=== PATIENT | female | born 1940 | race Caucasian/White ===

== ENCOUNTER 2020-04-26 08:46 | Outpatient (CLI) | payer MEDICARE, SELFPAY ==
--- NOTE | ~2020-04-26 | MM_ITS ---
EXAMINATION: MM screening alexander BI w carlos enrique HISTORY: Screening TECHNIQUE: Craniocaudal and mediolateral oblique 3-D tomosynthesis images were obtained and synthetic 2-D images were generated. CAD analysis was submitted and interpreted. COMPARISON: Comparison to multiple prior studies sequentially, with oldest reviewed study dated 01/2015. BREAST PARENCHYMAL COMPOSITION: There are scattered areas of fibroglandular density. FINDINGS: There is no evidence of suspicious mass, calcification, or architectural distortion to sugg est malignancy in either breast. There has been no suspicious interval change. IMPRESSION: 1. No mammographic evidence of malignancy. 2. Recommend routine screening mammography in one year. BI-RADS Category 1: Negative Reviewed, dictated and finalized at location A.
== END 2020-04-26 08:47 | disposition home or self-care (01) ==
LOC: ANHIMG 08:54
PROVIDERS: PCP Family Medicine; Visit Provider Family Medicine
DX: Z12.31 Encounter for screening mammogram for malignant neoplasm of breast (principal)
CPT/HCPCS: 77063; 77067

== ENCOUNTER → 2021-02-09 01:39 | Outpatient (CLI) | payer MEDICARE, SELFPAY ==
[2021-02-09 19:55] LABS: SARS-CoV-2 RNA PCR Negative
== END ==
PROVIDERS: PCP Family Medicine; Visit Provider Internal Medicine Gastroenterology
DX: Z01.812 Encounter for preprocedural laboratory examination (principal); Z20.822 Contact with and (suspected) exposure to COVID-19
CPT/HCPCS: C9803; U0003; U0005

== ENCOUNTER 2021-02-13 01:57 | Day surgery (SDC) | payer MEDICARE, SELFPAY ==
[2021-02-01 14:20] VITALS: BMI 24.2
[2021-02-13 07:00] VITALS: BP 139/74; PULSE 77; RESP 16; TEMP 36.1; O2SAT 100; BMI 25.2
[2021-02-13] MEDS: LACTATED RINGERS 1,000 ML 150 ML IV CONT (07:15)
--- NOTE | 2021-02-13 07:29 | P.PNAN_ITS ---
Anes - Initial Pre Proc Eval Procedure: Operation Date: 02/13/21 08:15 Proposed Procedures p Screening Colonoscopy - Kaz Mancia MD Date/Time: 02/13/21 07:29 Surgeon: aKz Mancia MD Pre Op Diagnosis: neoplasm screening, hx colon polyps Patient Data Age: 80 Gender: F Height: 5 ft 5 in Weight: 68.7 kg Last Vital Signs Temp 96.9 F L 02/13/21 07:00 Pulse 77 02/13/21 07:00 Resp 16 02/13/21 07:00 BP 139/74 02/13/21 07:00 Pulse Ox 100 02/13/21 07:00 Allergies Allergy/AdvReac Type Severity Reaction Status Date / Time No Known Allergies Allergy Verified 02/13/21 06:59 Home Medications Medication Instructions Recorded Confirmed Type simvastatin 20 mg tablet 20 mg PO DAILY #90 tablet 04/13/20 02/13/21 Rx balsalazide 750 mg capsule 2,250 mg PO TID #810 cap 10/29/20 02/13/21 Rx aspirin 81 mg PO DAILY 02/01/21 02/13/21 History calcium carbonate-vitamin D3 1 tablet PO DAILY 02/01/21 02/13/21 History [Os-Oscar 500 + D3] ferrous sulfate 325 mg PO DAILY 02/01/21 02/13/21 History hydrochlorothiazide 12.5 mg PO DAILY 02/01/21 02/13/21 History levothyroxine 50 mcg PO DAILY 02/01/21 02/13/21 History lisinopril 40 mg PO DAILY 02/01/21 02/13/21 History Patient hx anesthesia problems: none Family hx anesthesia problems: none [facility] Past Medical History Medical History (Updated 02/13/21 @ 07:29 by Tony Waller MD) Chronic kidney disease, stage 3 (moderate) Essential (primary) hypertension Mixed hyperlipidemia Family History Family History Mother Family history of thyroid disease Hypertension Cerebrovascular accident Sibling Hypertension Family history of elevated blood lipids Grandparent Family history of cardiovascular disease Father Family history of pulmonary embolism Social History Social History Smoking status: Never smoker Alcohol intake: current Alcohol use details: RARELY Living arrangements: alone Spiritual care concerns: No Anes - Eval Final PreProcedure Day of Procedure 02/13/21 07:29 Patient weight: normal Heart: regular rate and rhythm Lungs: clear to auscultation Airway: Mallampati scale class II Neurological: alert and oriented Last oral intake: >/= 8 hours ASA classification: III Emergent: no Anesthetic plan: proceed Anesthesia type and monitoring: general GIVS and standard monitoring Informed Consent: The patient's anesthetic plan and its attendant risks and benefits were discussed with the patient/family/POA. Questions were solicited and answers provided to the satisfaction of the patient/family/POA.
--- NOTE | 2021-02-13 08:05 | WPDGICN ---
Assessment and Plan Assessment and plan (1) Ulcerative (chronic) pancolitis without complications: Code(s): K51.00 - Ulcerative (chronic) pancolitis without complications Status: Acute Assessment and Plan: Patient has a longstanding history of ulcerative colitis. Currently in remission. Plan is to continue balsalazide for the immediate future further recommendations may be given after endoscopy. Surveillance colonoscopy is recommended at 3-5 year intervals in the future. As long as her health remains stable. GI Consult Note Consult date/time: 02/13/21 08:05 HPI: Lurdes Johnson is a 80 year old female Presents for surveillance colonoscopy. Patient has a history of ulcerative colitis. It has been in remission for several years. She has had surveillance colonoscopies in 2011 and 2014 with endoscopic findings of remission. Patient has been maintained on balsalazide 3 tablets p.o. t.i.d.. Patient denies any blood in her stools. She states that her weight appetite bowel movements are normal. She denies any abdominal pain. Family history is noncontributory. Patient presents today for surveillance examination. Review of Systems Review of Systems: All systems reviewed & are unremarkable except as noted in HPI and below PMFSH Past Medical History Medical History (Updated 02/13/21 @ 07:29 by Tony Waller MD) Chronic kidney disease, stage 3 (moderate) Essential (primary) hypertension Mixed hyperlipidemia Family History Family History Mother Family history of thyroid disease Hypertension Cerebrovascular accident Sibling Hypertension Family history of elevated blood lipids Grandparent Family history of cardiovascular disease Father Family history of pulmonary embolism Social History Social History Smoking status: Never smoker Alcohol intake: current Alcohol use details: RARELY Living arrangements: alone Spiritual care concerns: No Meds Home Medications and Allergies Home Medications Medication Instructions Recorded Confirmed Type simvastatin 20 mg tablet 20 mg PO DAILY #90 tablet 04/13/20 02/13/21 Rx balsalazide 750 mg capsule 2,250 mg PO TID #810 cap 10/29/20 02/13/21 Rx aspirin 81 mg PO DAILY 02/01/21 02/13/21 History calcium carbonate-vitamin D3 1 tablet PO DAILY 02/01/21 02/13/21 History [Os-Oscar 500 + D3] ferrous sulfate 325 mg PO DAILY 02/01/21 02/13/21 History hydrochlorothiazide 12.5 mg PO DAILY 02/01/21 02/13/21 History levothyroxine 50 mcg PO DAILY 02/01/21 02/13/21 History lisinopril 40 mg PO DAILY 02/01/21 02/13/21 History Allergies Allergy/AdvReac Type Severity Reaction Status Date / Time No Known Allergies Allergy Verified 02/13/21 06:59 Vital Signs Vital Signs - 24 hr 02/13/21 07:00 Temperature 96.9 F L Pulse Rate 77 Respiratory Rate 16 Blood Pressure 139/74 Pulse Oximetry 100 Exam Narrative: Exam Narrative: Physical exam reveals patient be alert. Vital signs stable. HEENT exam is unremarkable. Patient is anicteric. Lungs are clear to auscultation and percussion. Heart is without murmur or extra sounds. Abdominal exam bowel sounds are present soft nontender with no organomegaly. Digital external rectal exam is normal.
[2021-02-13 08:44] VITALS: BP 92/49; PULSE 73; RESP 24; O2SAT 100
[2021-02-13 08:54] VITALS: BP 121/59; PULSE 66; RESP 17; O2SAT 100
[2021-02-13 09:04] VITALS: BP 144/60; PULSE 71; RESP 18; O2SAT 100
== END 2021-02-13 09:15 | disposition home or self-care (01) ==
PROVIDERS: PCP Family Medicine; Visit Provider Internal Medicine Gastroenterology
PROC: 0DJD8ZZ Inspection of Lower Intestinal Tract, Via Natural or Artificial Opening Endoscopic (ICD-10-PCS; CPT 45378; principal; 2021-02-13 08:15)
DX: K51.00 Ulcerative (chronic) pancolitis without complications (principal); K57.30 Diverticulosis of large intestine without perforation or abscess without bleeding; K64.8 Other hemorrhoids; I12.9 Hypertensive chronic kidney disease with stage 1 through stage 4 chronic kidney disease, or unspecified chronic kidney disease; N18.30 Chronic kidney disease, stage 3 unspecified; E78.5 Hyperlipidemia, unspecified; Z94.0 Kidney transplant status
CPT/HCPCS: 45380; 88305; C9803; J2704; J7120; U0003; U0005

== ENCOUNTER 2021-04-29 07:29 | Outpatient (CLI) | payer MEDICARE, SELFPAY ==
--- NOTE | ~2021-04-29 | MM_ITS ---
EXAMINATION: MM screening alexander BI w carlos enrique HISTORY: Screening TECHNIQUE: Craniocaudal and mediolateral oblique 3-D tomosynthesis images were obtained and synthetic 2-D images were generated. CAD analysis was submitted and interpreted. COMPARISON: Comparison to multiple prior studies sequentially, with oldest reviewed study dated 05/05. BREAST PARENCHYMAL COMPOSITION: There are scattered areas of fibroglandular density. FINDINGS: There is no evidence of suspicious mass, calcification, or architectural distortion to sugg est malignancy in either breast. There has been no suspicious interval change. IMPRESSION: 1. No mammographic evidence of malignancy. 2. Recommend routine screening mammography in one year. BI-RADS Category 1: Negative Reviewed, dictated and finalized at location A.
== END 2021-04-29 07:30 | disposition home or self-care (01) ==
LOC: ANHIMG 07:31
PROVIDERS: PCP Family Medicine; Visit Provider Family Medicine
DX: Z12.31 Encounter for screening mammogram for malignant neoplasm of breast (principal)
CPT/HCPCS: 77063; 77067

== ENCOUNTER 2022-06-17 08:30 | Outpatient (CLI) | payer MEDICARE, SELFPAY ==
--- NOTE | ~2022-06-17 | MM_ITS ---
EXAMINATION: MM screening alexander BI w carlos enrique HISTORY: Screening mammogram TECHNIQUE: Craniocaudal and mediolateral oblique 3-D tomosynthesis images were obtained and synthetic 2-D images were generated. CAD analysis was submitted and interpreted. COMPARISON: 04/29/2021, 04/26/2020, 04/15/2019 bilateral screening mammogram examinations BREAST PARENCHYMAL COMPOSITION: There are scattered areas of fibroglandular density. FINDINGS: There is no evidence of suspicious mass, calcification, or architectural distortion to sugg est malignancy in either breast. There has been no suspicious interval change. IMPRESSION: 1. No mammographic evidence of malignancy. 2. Recommend routine screening mammography in one year. BI-RADS Category 1: Negative Reviewed, dictated and finalized at location A.
== END 2022-06-17 08:31 | disposition home or self-care (01) ==
PROVIDERS: PCP Physician Assistant; Visit Provider Physician Assistant
DX: Z12.31 Encounter for screening mammogram for malignant neoplasm of breast (principal)
CPT/HCPCS: 77063; 77067

== ENCOUNTER 2022-08-13 12:02 | Emergency (ER) | payer MEDICARE, SELFPAY ==
[2022-08-13] VITALS (16 sets, daily range): BP systolic 123–165; BP diastolic 54–125; PULSE 82–108; RESP 18–27; O2SAT 96–100
--- NOTE | ~2022-08-13 | XR_ITS ---
XR chest 2V 08/13/2022 12:50 Indication: Syncope. Hypertension. Colitis. Procedure: 2 view chest Comparison: 10/26/2015 Findings: Heart size normal. Chronic apical pleural thickening/scarring. No focal air space disease, pulmonary edema, pleural effusion or suspected pneumothorax. Impression: 1: No acute cardiopulmonary disease. Reviewed, dictated and finalized at location B. EGE ADMISSIONS COUNSELOR Impression: 1: No acute cardiopulmonary disease.
--- NOTE | ~2022-08-13 | XR_ITS ---
XR cervical spine 4-5V 08/13/2022 12:51 Indication: Neck pain. Syncope. Procedure: 5 views of the cervical spine Comparison: No prior studies for comparison. Findings: Straightening of cervical lordosis. There is degenerative anterolisthesis at C3-4 and C4-5. There is advanced degenerative disc disease at C5-6 and C6-7. No prevertebral soft tissue swelling. Odontoid process is normal. There is moderate multilevel facet hypertrophy. No acute fracture or trau matic malalignment is identified. Impression: 1: Moderate-severe cervical spondylosis. Reviewed, dictated and finalized at location B. RATORY PHLEBOTOMIST Impression: 1: Moderate-severe cervical spondylosis.
--- NOTE | 2022-08-13 12:28 | ECG_ITS ---
Measurements Intervals [place] Rate: 82 P: 19 WI: 167 QRS: 6 QRSD: 86 T: 11 QT: 376 QTc: 441 Interpretive Statements SINUS RHYTHM BORDERLINE T WAVE ABNORMALITY- ANTERIOR LEADS BASELINE ARTIFACT- I, II, III, AVR, AVL, AVF BORDERLINE ECG NO PREVIOUS ECG AVAILABLE FOR COMPARISON Electronically Signed On 08-13-2022 15:26:53 [employer] by Douglas Condon D.O.
--- NOTE | 2022-08-13 12:41 | PC.NURSE ---
Pt in scan
[2022-08-13] MEDS: diazePAM INJ (*CRX) 10 MG/2 ML SYRINGE 2.5 MG IV PUSH (12:59)
[2022-08-13] MEDS: SODIUM CHLORIDE 0.9% IV 1,000 ML 999 ML IV CONT (12:59)
[2022-08-13] MEDS: KETOROLAC 15 MG/ML VIAL (*BKC) IV PUSH (13:00)
[2022-08-13 13:19] LABS: Basophils Percent Auto 0.5 % (0.2-1.2); Eosinophils Percent Auto 0.2 % (0-4.4); Hematocrit 26.9 % (37.0-47.0); Immature Granulocyte Absolute 0.07 K/mm3 (0.00-0.031); Immature Granulocyte Percent A 1.2 % (0-0.5); Immature Platelet Fraction Pct 6.3 % (0.9-11.2); Lymphocytes Absolute Auto 0.45 K/mm3 (0.9-3.2); Lymphocytes Percent Auto 7.5 % (18.3-44.2); Mean Corpuscular HGB Conc 33.5 g/dl (32-36); Mean Corpuscular Hemoglobin 31.9 pg (26-34); Mean Corpuscular Volume 95.4 fl (80-100); Mean Platelet Volume 10.9 fl (7.4-10.4); Monocytes Absolute Auto 0.6 K/mm3 (0.1-0.6); Monocytes Percent Auto 9.5 % (2.6-8.5); Neutrophils Absolute Auto 4.9 K/mm3 (1.3-6.7); Neutrophils Percent Auto 81.1 % (45.5-73.1); Platelet Count Result 146 k/mm3 (150-375); Red Blood Count 2.82 M/mm3 (4.2-5.4); Red Cell Distribution Width 15.1 % (11.5-14.5)
[2022-08-13 13:26] LABS: INR 1.2; Prothrombin Time 14.4 Seconds (11.1-14.7)
[2022-08-13 13:27] LABS: Alanine Aminotransferase 14 U/L (6-35); Albumin Level 4.6 g/dL (3.5-5.1); Alkaline Phosphatase 87 U/L (38-126); Anion Gap 12 mmol/L (8-16); Aspartate Amino Transferase 18 U/L (14-36); Bilirubin,Total 0.5 mg/dL (0.2-1.3); Blood Urea Nitrogen 19 mg/dL (7-17); Calcium 8.9 mg/dL (8.4-10.2); Carbon Dioxide 24 mmol/L (22-30); Chloride 98 mmol/L (98-107); Estimated CRCL calculation 38 ml/min; Estimated Glomerular Filt Rate 60; Glucose 116 mg/dL (65-110); Partial Thromboplastin Time 32.3 SECONDS (22.3-36.8); Sodium 134 mmol/L (137-145)
[2022-08-13 13:37] LABS: Troponin I < 0.012 ng/mL (0.000-0.034)
[2022-08-13 13:52] LABS: Influenza A QL RT-PCR Negative (Negative); Influenza B QL RT-PCR Negative (Negative); SARS-CoV-2 RNA PCR Negative
[2022-08-13 14:25] LABS: Appearance Urine Clear (Clear); Bilirubin Urine Negative (Negative); Blood Urine Negative (Negative); Color Urine Yellow (Yellow); Glucose Urine UA Negative (Negative); Ketones Urine Trace mg/dL (Negative); Leukocyte Esterase Ur 1+ LEU/UL (Negative); Nitrate Urine Negative (Negative); Protein Urine 1+ mg/dL (Negative); Urobilinogen Urine 0.2 mg/dL (<2.0)
[2022-08-13 14:34] LABS: Add Urine Microscopic? YES; Mucus Urine Rare /lpf; Squamous Epithelial Cell Urine Rare /hpf (Few); WBC Urine 21-30 /hpf
--- NOTE | 2022-08-13 15:25 | ED.NECK ---
HPI - Neck Pain/Injury General Chief Complaint: Neck Pain/Injury Stated Complaint: shooting neck pain to head for 6 days Time Seen by Provider: 08/13/22 12:20 History of Present Illness HPI Narrative: Patient is an 81-year-old female who presents ER with neck pain worsening over the last few days. She went to Chiropractor yesterday and had stim treatments as well as some massage performed. She has been taking [id number] pain medication without improvement. No numbness or tingling. Denies trauma. Woke up with the tightness. No fevers chills or sweats. No meningismus. Has difficulty turning to the left mainly. Denies trauma. Related Data Home Medications Medication Instructions Recorded Confirmed aspirin 81 mg tablet 81 mg PO DAILY 02/01/21 08/13/22 calcium carbonate 500 mg-vitamin 1 tablet PO DAILY 02/01/21 08/13/22 D3 15 mcg (600 unit) tablet (Os-Oscar 500 + D3) ferrous sulfate 325 mg (65 mg 325 mg PO DAILY 02/01/21 08/13/22 iron) tablet Allergies Allergy/AdvReac Type Severity Reaction Status Date / Time No Known Allergies Allergy Verified 08/13/22 11:15 Review of Systems Review of Systems: All systems reviewed & are unremarkable except as noted in HPI and below Constitutional: Constitutional: Denies chills, Reports fatigue and Denies fever(s) ENT: Denies nasal congestion and Denies sore throat Cardiovascular: Cardiovascular: Denies chest pain, Denies rapid heart rate and Denies radiating jaw, neck or arm pain Respiratory: Respiratory: Denies cough and Denies dyspnea Gastrointestinal: Gastrointestinal: Denies abdominal pain, Denies diarrhea and Denies vomiting Musculoskeletal: Musculoskeletal: Reports myalgias and Reports muscle cramps Comments: Neck pain Neurologic: Denies headache(s), Denies focal weakness and Denies numbness PMFSH Past Medical History Medical History Chronic kidney disease, stage 3 (moderate) Essential (primary) hypertension Mixed hyperlipidemia Family History Family History Mother Family history of thyroid disease Hypertension Cerebrovascular accident Sibling Hypertension Family history of elevated blood lipids Grandparent Family history of cardiovascular disease Father Family history of pulmonary embolism Social History Social History Smoking status: Never smoker Alcohol intake: current Alcohol use details: RARELY Substance use: never Substance use type: does not use Lack of Transportation: No Lack of Food: Never True Current Housing: I Have Housing Concerned About Future Housing: No Difficulty Paying Gas/Electric Bills: No Difficulty Paying for Meds: No Currently Unemployed: No Education: High School Diploma/GED Difficulty w/ Childcare or Family Care: No Gender identity (if verbalized by the patient): Female Spiritual care concerns: No Agree to blood products: Yes Exam Narrative: GENERAL: Well-appearing, well-nourished, and in no acute distress. HEAD: Normocephalic, atraumatic. EYES: PERRL and EOMI. ENT: Mucous membranes moist. NECK: Supple. Paraspinal muscle tenderness and spasm in the cervical spine left side. CHEST: Clear to auscultation. No respiratory distress. HEART: Regular rate and rhythm. Normal peripheral pulses. EXTREMITIES: Normal range of motion. No edema. SKIN: Warm, dry, no rash. NEURO: No focal deficits. Alert and oriented x3. PSYCH: Normal mood and affect. Course Course Emergency Course: Patient resting comfortably. Feels much better after Valium and Toradol. Discharge home. Vital Signs Vital signs: Vital Signs Pulse Rate 85 08/13/22 12:03 Respiratory Rate 20 08/13/22 12:03 Blood Pressure 132/73 08/13/22 12:03 Pulse Oximetry 100 08/13/22 12:03 Oxygen Delivery Room Air 08/13/22 12
== END 2022-08-13 15:41 | disposition home or self-care (01) ==
PROVIDERS: Emergency Provider Emergency Medicine; PCP Emergency Medicine
DX: M62.838 Other muscle spasm (principal); Z20.822 Contact with and (suspected) exposure to COVID-19; I12.9 Hypertensive chronic kidney disease with stage 1 through stage 4 chronic kidney disease, or unspecified chronic kidney disease; N18.30 Chronic kidney disease, stage 3 unspecified; E78.2 Mixed hyperlipidemia; Z79.82 Long term (current) use of aspirin; M47.812 Spondylosis without myelopathy or radiculopathy, cervical region; R94.31 Abnormal electrocardiogram [ECG] [EKG]; R82.998 Other abnormal findings in urine
CPT/HCPCS: 36415; 71046; 72050; 80053; 81001; 84484; 85025; 85055; 85610; 85730; 87086; 87636; 93005; 96361; 96374; 96375; 99284; J1885; J3360; J7030

== ENCOUNTER 2022-09-23 10:43 | Outpatient (CLI) | payer MEDICARE, SELFPAY ==
[2022-09-23 18:41] LABS: Basophils Percent Auto 1.1 % (0.2-1.2); Eosinophils Percent Auto 0.4 % (0-4.4); Immature Granulocyte Absolute 0.15 K/mm3 (0.00-0.031); Immature Granulocyte Percent A 5.7 % (0-0.5); Immature Platelet Fraction Pct 9.3 % (0.9-11.2); Lymphocytes Absolute Auto 0.33 K/mm3 (0.9-3.2); Lymphocytes Percent Auto 12.6 % (18.3-44.2); Mean Corpuscular HGB Conc 32.1 g/dl (32-36); Mean Corpuscular Hemoglobin 31.8 pg (26-34); Mean Platelet Volume 10.3 fl (7.4-10.4); Monocytes Absolute Auto 0.1 K/mm3 (0.1-0.6); Monocytes Percent Auto 4.2 % (2.6-8.5); Platelet Count Result 77 k/mm3 (150-375); Red Blood Count 1.95 M/mm3 (4.2-5.4); Red Cell Distribution Width 18.4 % (11.5-14.5); White Blood Count 2.6 K/mm3 (4.5-10.0)
[2022-09-23 20:43] LABS: Hematocrit 19.3 % (37.0-47.0); Hemoglobin 6.2 g/dL (12.0-15.0)
[2022-09-23 20:45] LABS: Anisocytosis 2+ (NORMAL); Hypochromasia 1+ (NORMAL); Platelet Estimate Decreased (Adequate)
[2022-09-23 20:46] LABS: Schistocytes None Seen (NORMAL)
[2022-09-23 21:35] LABS: Free T4 Free Thyroxine 1.84 ng/mL (0.78-2.19)
[2022-09-23 23:04] LABS: Folic Acid > 20.0 ng/mL (2.76->20)
== END 2022-09-23 10:44 | disposition home or self-care (01) ==
LOC: ANHGOSHLAB 10:45
PROVIDERS: PCP Emergency Medicine; Visit Provider Emergency Medicine
DX: R53.83 Other fatigue (principal); D63.8 Anemia in other chronic diseases classified elsewhere
CPT/HCPCS: 36415; 82607; 82746; 84439; 84443; 85025; 85055

== ENCOUNTER 2022-09-23 21:12 | Emergency (ER) | payer MEDICARE, SELFPAY ==
[2022-09-23 21:16] VITALS: BP 136/56; PULSE 105; RESP 20; TEMP 37.2; O2SAT 98
[2022-09-23 21:55] LABS: Immature Platelet Fraction Pct 8.2 % (0.9-11.2); Mean Corpuscular HGB Conc 32.9 g/dl (32-36); Mean Corpuscular Hemoglobin 32.8 pg (26-34); Mean Corpuscular Volume 99.4 fl (80-100); Mean Platelet Volume 11.2 fl (7.4-10.4); Platelet Count Result 81 k/mm3 (150-375); Red Blood Count 1.74 M/mm3 (4.2-5.4); Red Cell Distribution Width 18.6 % (11.5-14.5); White Blood Count 2.1 K/mm3 (4.5-10.0)
[2022-09-23 22:09] LABS: Alanine Aminotransferase 16 U/L (6-35); Albumin Level 3.5 g/dL (3.5-5.1); Alkaline Phosphatase 66 U/L (38-126); Anion Gap 6 mmol/L (8-16); Aspartate Amino Transferase 20 U/L (14-36); Bilirubin,Total 0.5 mg/dL (0.2-1.3); Blood Urea Nitrogen 21 mg/dL (7-17); Calcium 8.2 mg/dL (8.4-10.2); Carbon Dioxide 26 mmol/L (22-30); Chloride 97 mmol/L (98-107); Estimated CRCL calculation 33 ml/min; Estimated Glomerular Filt Rate 48; Glucose 112 mg/dL (65-110); Potassium 3.7 mmol/L (3.4-5.0); Sodium 129 mmol/L (137-145)
[2022-09-23 22:30] LABS: Hematocrit 17.3 % (37.0-47.0); Hemoglobin 5.7 g/dL (12.0-15.0)
[2022-09-23 22:31] LABS: Band Neutrophils Percent 2 % (0-6); Eosinophils Absolute Manual 0.02 K/mm3 (0.02-0.5); Eosinophils Percent Manual 1 % (0-4); Lymphocytes Absolute Manual 0.73 K/mm3 (1.1-4.5); Lymphocytes Percent Manual 35 % (18-44); Monocytes Absolute Manual 0.06 K/mm3 (0.1-0.90); Monocytes Percent Manual 3 % (3-9); Neutrophils Absolute Manual 1.28 K/mm3 (1.7-7.2); Neutrophils Percent Manual 59 % (46-73); Total Cells Counted 100
[2022-09-23 22:32] LABS: Anisocytosis 2+ (NORMAL); Hypochromasia 3+ (NORMAL); Large Platelets Present; Macrocytosis 1+ (NORMAL); Microcytosis 2+ (NORMAL); Platelet Estimate Adequate (Adequate); Poikilocytosis 2+ (NORMAL)
[2022-09-23 22:33] LABS: Ovalocytes 1+ (NORMAL); Schistocytes 1+ (NORMAL)
[2022-09-23 22:35] LABS: Atypical Lymphocytes Present; Hypersegmented Neutrophils Present
[2022-09-23 22:36] LABS: Burr Cells 1+ (NORMAL)
[2022-09-23 23:08] VITALS: BP 132/55; PULSE 91; RESP 22; O2SAT 96
[2022-09-23 23:13] VITALS: O2SAT 96
[2022-09-23 23:32] LABS: Influenza A QL RT-PCR Negative (Negative); Influenza B QL RT-PCR Negative (Negative); RSV RNA, RT-PCR Negative (Negative); SARS-CoV-2 RNA PCR Negative
[2022-09-24] VITALS (8 sets, daily range): BP systolic 128–146; BP diastolic 55–64; PULSE 84–89; RESP 17–28; TEMP 37.3–37.4; O2SAT 92–99
--- NOTE | 2022-09-24 00:17 | ED.RECABL ---
HPI - Recheck/Abnormal Lab/Rx General Chief Complaint: Recheck/Abnormal Lab/Rx Stated Complaint: low hemoglobin Time Seen by Provider: 09/23/22 22:25 History of Present Illness HPI narrative: 81-year-old female presenting from primary care doctor for low hemoglobin, she has been having more fatigue over the last few months, was recently started on iron pills, had studies with her GI doctor to make sure she was not losing blood through her stool. Denies any source of bleeding. Related Data Home Medications Medication Instructions Recorded Confirmed aspirin 81 mg tablet 81 mg PO DAILY 02/01/21 08/13/22 calcium carbonate 500 mg-vitamin 1 tablet PO DAILY 02/01/21 08/13/22 D3 15 mcg (600 unit) tablet (Os-Oscar 500 + D3) ferrous sulfate 325 mg (65 mg 325 mg PO DAILY 02/01/21 08/13/22 iron) tablet pantoprazole 40 mg tablet,delayed 40 mg PO 09/23/22 release Allergies Allergy/AdvReac Type Severity Reaction Status Date / Time No Known Allergies Allergy Verified 09/23/22 23:14 Review of Systems Review of Systems: CONST: Fatigue HEENT: No sore throat C/V: No chest pain RESP: Increased dyspnea with exertion GI: No GI bleed] : No dysuria. M/S: No joint pain. SKIN: Pale NEURO: [No headache or focal numbness or weakness] PSYCH: [No depression] [facility] Past Medical History Medical History Chronic kidney disease, stage 3 (moderate) Essential (primary) hypertension Mixed hyperlipidemia Family History Family History Mother Family history of thyroid disease Hypertension Cerebrovascular accident Sibling Hypertension Family history of elevated blood lipids Grandparent Family history of cardiovascular disease Father Family history of pulmonary embolism Social History Social History Smoking status: Never smoker Alcohol intake: current Alcohol use details: RARELY Substance use: never Substance use type: does not use Lack of Transportation: No Lack of Food: Never True Current Housing: I Have Housing Concerned About Future Housing: No Difficulty Paying Gas/Electric Bills: No Difficulty Paying for Meds: No Currently Unemployed: No Education: High School Diploma/GED Difficulty w/ Childcare or Family Care: No Gender identity (if verbalized by the patient): Female Spiritual care concerns: No Agree to blood products: Yes Exam Narrative: EXAMINATION OF ORGAN SYSTEMS/BODY AREAS: Constitutional: Vital signs per nursing GENERAL: Appears tired but in no acute distress HEAD: Normal with no signs of head trauma. EYES: EOMI, pale conjunctiva ENT: Hearing grossly intact LUNGS: Nonlabored breathing. HEART: Tachycardic ABD: No tenderness RECTAL: Grossly dark stool, hemoccult NEGATIVE EXT: Normal range of motion SKIN: Pale NEURO: [Alert and oriented x 3. No gross focal sensory or strength deficits.] PSYCH: Normal affect Course Vital Signs Vital signs: Vital Signs Temperature 98.9 F 09/23/22 21:16 Pulse Rate 105 H 09/23/22 21:16 Respiratory Rate 20 09/23/22 21:16 Blood Pressure 136/56 L 09/23/22 21:16 Pulse Oximetry 98 09/23/22 21:16 Oxygen Delivery Room Air 09/23/22 21:16 Temperature 99.1 F 09/24/22 00:57 Pulse Rate 88 09/24/22 00:57 Respiratory Rate 17 09/24/22 00:57 Blood Pressure 131/55 L 09/24/22 00:57 Pulse Oximetry 99 09/24/22 00:57 Oxygen Delivery Room Air 09/23/22 23:13 MDM - Recheck/Abnormal Lab/Rx MDM Narrative Medical decision making narrative: 81-year-old female presenting here for anemia requiring blood transfusion, denying any source of blood loss. Vital signs stable here other than some tachycardia, she appears tired and pale on exam. My differential includes possible malignancy versus GI bleed versus malnutrition or anemia of chronic disease.
[2022-09-24] MEDS: SODIUM CHLORIDE 0.9% IV 250 ML 30 ML IV CONT (00:24)
[2022-09-24] MEDS: TUBING, BLOOD SET 1 EACH XX (00:45)
[2022-09-24] MEDS: TUBING, BLOOD PLUM PUMP TUBING 1 EACH XX (02:53)
== END 2022-09-24 05:14 | disposition home or self-care (01) ==
PROVIDERS: Emergency Provider Emergency Medicine; PCP Emergency Medicine
DX: D64.9 Anemia, unspecified (principal); D61.818 Other pancytopenia; Z20.822 Contact with and (suspected) exposure to COVID-19; I12.9 Hypertensive chronic kidney disease with stage 1 through stage 4 chronic kidney disease, or unspecified chronic kidney disease; N18.30 Chronic kidney disease, stage 3 unspecified; E78.2 Mixed hyperlipidemia; Z79.82 Long term (current) use of aspirin
CPT/HCPCS: 36415; 36430; 80053; 82607; 82746; 84439; 84443; 85025; 85055; 86850; 86900; 86901; 86923; 87637; 96360; 96361; 99285; J7050; P9016

== ENCOUNTER 2022-10-10 02:07 | Day surgery (SDC) | payer MEDICARE, SELFPAY ==
[2022-10-09 14:52] VITALS: BMI 22.7
[2022-10-10 07:45] VITALS: BP 125/64; PULSE 85; RESP 12; TEMP 36.6; O2SAT 100
[2022-10-10 07:55] LABS: Basophils Percent Auto 0.4 % (0.2-1.2); Eosinophils Percent Auto 0.8 % (0-4.4); Hematocrit 30.1 % (37.0-47.0); Hemoglobin 9.7 g/dL (12.0-15.0); Immature Granulocyte Absolute 0.02 K/mm3 (0.00-0.031); Immature Granulocyte Percent A 0.8 % (0-0.5); Immature Platelet Fraction Pct 5.7 % (0.9-11.2); Lymphocytes Absolute Auto 1.07 K/mm3 (0.9-3.2); Lymphocytes Percent Auto 44.2 % (18.3-44.2); Mean Corpuscular HGB Conc 32.2 g/dl (32-36); Mean Corpuscular Volume 93.2 fl (80-100); Mean Platelet Volume 9.7 fl (7.4-10.4); Monocytes Absolute Auto 0.3 K/mm3 (0.1-0.6); Monocytes Percent Auto 10.7 % (2.6-8.5); Neutrophils Percent Auto 43.1 % (45.5-73.1); Platelet Count Result 95 k/mm3 (150-375); Red Blood Count 3.23 M/mm3 (4.2-5.4); Red Cell Distribution Width 17.2 % (11.5-14.5); White Blood Count 2.4 K/mm3 (4.5-10.0)
[2022-10-10 08:05] VITALS: BMI 21.8
[2022-10-10 08:05] LABS: INR 1.2; Prothrombin Time 14.5 Seconds (11.1-14.7)
--- NOTE | 2022-10-10 09:08 | WPDMODSED ---
Moderate Sedation Note-Pt Data Patient Data Diagnosis: anemia Present Complaint: anemia Procedure to be performed/Plan: bone marrow biospy Allergies Allergy/AdvReac Type Severity Reaction Status Date / Time No Known Allergies Allergy Verified 10/09/22 15:03 Home Medications Medication Instructions Recorded Confirmed Type calcium carbonate 500 mg-vitamin 1 tablet PO DAILY 02/01/21 10/09/22 History D3 15 mcg (600 unit) tablet (Os-Oscar 500 + D3) ferrous sulfate 325 mg (65 mg 325 mg PO DAILY 02/01/21 10/09/22 History iron) tablet balsalazide 750 mg capsule 1,500 mg PO BID #360 caps 08/19/21 10/09/22 Rx hydrochlorothiazide 12.5 mg tablet 12.5 mg PO DAILY 10/09/22 10/09/22 History levothyroxine 50 mcg tablet 50 mcg PO DAILY 10/09/22 10/09/22 History lisinopril 40 mg tablet 40 mg PO DAILY 10/09/22 10/09/22 History simvastatin 20 mg tablet 20 mg PO DAILY 10/09/22 10/09/22 History Sedation/Anesthesia: No previous sedation/anesthesia problems (including family history). [facility] Past Medical History Medical History Chronic kidney disease, stage 3 (moderate) Essential (primary) hypertension Mixed hyperlipidemia Family History Family History Mother Family history of thyroid disease Hypertension Cerebrovascular accident Sibling Hypertension Family history of elevated blood lipids Grandparent Family history of cardiovascular disease Father Family history of pulmonary embolism Social History Social History Smoking packs per day: 0 Smoking cigarettes per day: 0.0 Smoking status: Never smoker Alcohol intake: current Drinks per week: 1 Alcohol use details: occassional glass of wine. not daily Substance use: never Substance use type: does not use Lack of Transportation: No Lack of Food: Never True Current Housing: I Have Housing Concerned About Future Housing: No Difficulty Paying Gas/Electric Bills: No Difficulty Paying for Meds: No Currently Unemployed: No Education: High School Diploma/GED Difficulty w/ Childcare or Family Care: No Living arrangements: alone Occupation/Education: retired Gender identity (if verbalized by the patient): Female Spiritual care concerns: No Agree to blood products: Yes Mod Sed Physical Exam Physical Exam Pre Procedural Exam: Normal: Appearance, Throat, Lungs, Heart Rate and Heart Rhythm Hours since solid foods: 14 Hours since liquid intake: 14 Mallampati Classification: class II Internal Medicine - PN: Obj Da Vital Signs Vital Signs: Vital Signs - 24 hr 10/10/22 07:45 Temperature 97.9 F Pulse Rate 85 Respiratory Rate 12 Blood Pressure 125/64 Pulse Oximetry 100 Oxygen Delivery Room Air Labs 10/10/22 07:43 Labs: Laboratory Results - last 24 hr 10/10/22 10/10/22 07:43 07:43 WBC 2.4 L RBC 3.23 L Hgb 9.7 L D Hct 30.1 L MCV 93.2 MCH 30.0 MCHC 32.2 RDW 17.2 H Plt Count 95 L MPV 9.7 Immature Gran % (Auto) 0.8 H Neut % (Auto) 43.1 L Lymph % (Auto) 44.2 Weber % (Auto) 10.7 H Eos % (Auto) 0.8 Baso % (Auto) 0.4 Lymph # (Auto) 1.07 Weber # (Auto) 0.3 Eos # (Auto) 0.0 Baso # (Auto) 0.0 Abs Immat Gran (auto) 0.02 Absolute Neuts (auto) 1.0 L Absolute Nucleated RBC 0.0 Nucleated RBC % 0.0 % Immature Plt Fraction 5.7 PT 14.5 INR 1.2 ASA Classification/Sedation ASA Classification/Sedation ASA Class: II Emergent: No Risks: Risks, benefits and alternatives explained and patient/family accepted plan for sedation. Patient re-evaluated immediately prior to sedation.
[2022-10-10 09:45] VITALS: BP 137/63; PULSE 79; RESP 20; TEMP 36.6; O2SAT 100
[2022-10-10 10:00] VITALS: BP 113/60; PULSE 76; RESP 18; O2SAT 97
[2022-10-10 10:15] VITALS: BP 117/53; PULSE 86; RESP 18; O2SAT 100
[2022-10-10 10:30] VITALS: BP 116/65; PULSE 78; RESP 18; O2SAT 100
[2022-10-10 10:45] VITALS: BP 130/65; PULSE 88; RESP 16; O2SAT 98
== END 2022-10-10 11:15 | disposition home or self-care (01) ==
PROVIDERS: PCP Emergency Medicine; Visit Provider Radiology Diagnostic Radiology
DX: C92.00 Acute myeloblastic leukemia, not having achieved remission (principal); D61.818 Other pancytopenia; I12.9 Hypertensive chronic kidney disease with stage 1 through stage 4 chronic kidney disease, or unspecified chronic kidney disease; N18.30 Chronic kidney disease, stage 3 unspecified; E78.2 Mixed hyperlipidemia; Z79.899 Other long term (current) drug therapy
CPT/HCPCS: 36415; 38222; 85025; 85055; 85610; 88184; 88185; 88305; 88311; 88313; 88341; 88342; J1642; J3010; J7040

== ENCOUNTER 2022-10-24 14:55 | Inpatient (IN) | payer MEDICARE, SELFPAY ==
[2022-10-21 09:18] VITALS: BMI 22.8
--- NOTE | 2022-10-21 09:40 | PC.NURSE ---
Report to the Outpatient Waiting Room, entrance under the green pavilion located off [facility], at time ___0800____ on date _10/24/22 . Planned Procedure Time: __1000 . Time changes happen often and if your time is changed the preop area will call you the afternoon before. - You and your visitor will be asked to self-screen and do not enter if you have any COVID symptoms. - Only one visitor is requested with a max of two and NO children visitors are allowed at this time. - The patient visitor may be requested to leave or wait in car when not with patient due to distancing restrictions. - A mask is optional within the hospital at this time. Patients may have clear liquids (water, carbonated beverages, clear teas, apple juice) until 3 hours prior to surgery (0700 AM) with a maximum of 20 ounces. - No food from midnight until time of surgery - Infants may have breast milk until 4 hours before surgery, formula 6 hours prior to surgery. - Children will be allowed to drink immediately following surgery. If applicable, please bring a bottle or sippy cup to assist with drinking. Juice, water, soda, and popsicles are readily available. For infants on formula, please bring formula the day of surgery. Pacifiers are allowed. Take the following medications with a SIP of water the morning of surgery: _LEVOTHYROXINE_ DO NOT STOP ANY OF YOUR OTHER PRESCRIPTION MEDICATIONS PRIOR TO SURGERY ?EXCEPT THE FOLLOWING Medications to discontinue per physician NONE Date to take last dose Please no make-up, nail korean, hairspray, perfume, deodorant, or body powder the day of surgery. No jewelry (including any body piercings) or valuables the day of surgery, leave them at home. Please take a shower or bath the night before, or the morning of, surgery with an antibacterial soap. Wear comfortable, loose fitting clothing. Children are encouraged to wear pajamas. - Jewelry must be removed prior to entering the operating room. Rings and piercings that are not removed may be cut off. - The hospital will not accept responsibility for valuables. - Please leave all valuables, including medications, at home the day of surgery. If you are going home after surgery, a licensed sales warehouse driver must drive you home. - NO public transportation without another adult if you receive anesthesia. - We recommend that an adult stay with you for 24 hours following discharge. - We also recommend that you do not drive, make important decision, drink alcoholic beverages, or take any drugs that were not prescribed by your health care provider for at least 24 hours after your discharge time. For Pediatric surgeries, we recommend two adults accompany the child home. Follow any additional instructions given to you from your surgeon. If you or anyone in your household have experienced Covid symptoms in the past week, please notify your surgeon or the nurse liaison at the phone number below for possible testing. Telephone instructions given to ____PATIENT and asked if any additional questions and then verbalized understanding. Patient advised to call surgeon office or pre surgery nurse liaison [phone] if any additional questions.
[2022-10-24] VITALS (14 sets, daily range): BP systolic 98–144; BP diastolic 41–83; PULSE 80–96; RESP 12–22; TEMP 36.6–36.7; O2SAT 96–100; BMI 22.4
--- NOTE | ~2022-10-24 | XR_ITS ---
EXAMINATION: XR chest 1V portable INDICATION: Chest tube placement TECHNIQUE: Portable AP chest at 0503 hours COMPARISON: 10/24/2022 FINDINGS: A right-sided chest tube is unchanged in position. No pneumothorax is identified. A right s ubclavian Port-A-Cath ends with this tip in the distal superior vena cava. There is a small left pleu ral effusion. The cardiomediastinal silhouette is normal. IMPRESSION: 1. Right-sided chest tube unchanged in position. No pneumothorax. Reviewed, dictated and finalized at location A. MEASURES ABSTRACTOR
--- NOTE | ~2022-10-24 | XR_ITS ---
EXAMINATION: XR chest-chest tube insert/pos DATE: 10/24/2022 17:48 INDICATION: Right pneumothorax status post chest tube placement. TECHNIQUE: A single frontal view of the chest was obtained. COMPARISON: Chest single view at 2:56 PM FINDINGS: There is mild scarring at left lung apex. No pleural effusion or pneumothorax. The heart si ze is normal. There is a right subclavian port with tip at superior cavoatrial junction. There is a r ight-sided chest tube with tip at right lung apex. IMPRESSION: 1. No pneumothorax. Right-sided chest tube in expected position. Reviewed, dictated and finalized at location A. T PERFORMER
--- NOTE | ~2022-10-24 | XR_ITS ---
EXAMINATION: XR chest 1V portable INDICATION: Chest tube removal, chest pain TECHNIQUE: Portable AP chest at 0922 hours COMPARISON: 10/28/2022 FINDINGS: The right subclavian Port-A-Cath ends with its tip in the distal superior vena cava. No pne umothorax is identified. The lungs are free of acute opacities. There is a trace right pleural effusi on. The cardiomediastinal silhouette is normal. IMPRESSION: 1. No pneumothorax identified. Reviewed, dictated and finalized at location D. LL ASSEMBLER
--- NOTE | ~2022-10-24 | XR_ITS ---
EXAMINATION: XR chest 2V DATE: 10/27/2022 16:04 INDICATION: Right pneumothorax. Chest tube put to waterseal. TECHNIQUE: Frontal and lateral views of the chest were obtained. COMPARISON: Chest single view 10/27/2022, chest 2 views 08/13/2022 FINDINGS: There is mild scarring at the lung apices. There is a small right pneumothorax. A right-yony ed chest tube is noted. There are trace pleural effusions. The heart size is normal. There is a right subclavian port with tip at superior cavoatrial junction. IMPRESSION: 1. Small right pneumothorax with interval worsening. Right-sided chest tube in expected position. Reviewed, dictated and finalized at location A. L VIAL MARKER
--- NOTE | ~2022-10-24 | XR_ITS ---
Portable chest x-ray Comparison: 10/26/2022 Clinical History: Pneumothorax Findings: Right-sided Mediport and right-sided chest tube are in place. Minimal residual right apica l pneumothorax is present. Lungs are otherwise clear. Cardiomediastinal silhouette is stable. Bones and soft tissues are unremarkable. Impression: Minimal residual right apical pneumothorax. Right-sided chest tube and right Mediport in place. Reviewed, dictated and finalized at location M. Impression: Minimal residual right apical pneumothorax. Right-sided chest tube and right Mediport in place.
--- NOTE | ~2022-10-24 | XR_ITS ---
Portable chest x-ray Comparison: 10/28/2022 at 5:28 AM Clinical History: Chest tube removal Findings: Right chest tube has been removed. Right-sided Mediport remains. No definite pneumothorax seen. Lungs are clear. Cardiomediastinal silhouette is stable. Bones and soft tissues are unremarkab le. Impression: No definite pneumothorax following right chest tube removal. Right-sided Mediport. Reviewed, dictated and finalized at location . NING LATHE OPERATOR AUTOMATIC Impression: No definite pneumothorax following right chest tube removal. Right-sided Mediport.
--- NOTE | ~2022-10-24 | XR_ITS ---
EXAMINATION: XR chest port-a-cath/central INDICATION: Right pneumothorax TECHNIQUE: Portable AP chest at 1230 hours COMPARISON: 1053 hours FINDINGS: There is a small right apical pneumothorax with slight increase in size. No pleural effusio n is identified. A right subclavian Port-A-Cath ends with this tip in the distal superior vena cava. The cardiomediastinal silhouette is normal. IMPRESSION: 1. Small right apical pneumothorax with slight increase in size. Reviewed, dictated and finalized at location B. H TESTER
--- NOTE | ~2022-10-24 | XR_ITS ---
EXAMINATION: XR chest port-a-cath/central INDICATION: Port-A-Cath insertion TECHNIQUE: Portable AP chest at 1053 hours COMPARISON: 08/13/2022 FINDINGS: A right subclavian Port-A-Cath ends with its tip in the distal superior vena cava. There is a tiny right apical pneumothorax. Scarring is noted in the left lung apex. The lungs are free of acu te opacities. There is no pleural effusion. The cardiomediastinal silhouette is normal. IMPRESSION: 1. Right subclavian Port-A-Cath insertion with tiny right apical pneumothorax. These findings were discussed with Dr. Carlos Puri MD at 1128 hours on 10/24/2022. Reviewed, dictated and finalized at location B. POUNDER IMPRESSION: 1. Right subclavian Port-A-Cath insertion with tiny right apical pneumothorax. These findings were discussed with Dr. Carlos Puri MD at 1128 hours on 023.
--- NOTE | ~2022-10-24 | XR_ITS ---
EXAMINATION: XR chest 1V portable INDICATION: Right pneumothorax TECHNIQUE: Portable AP chest at 1256 hours COMPARISON: 10/24/2022 FINDINGS: A right chest tube ends with its tip at the right lung apex. There is now a small right api gloria pneumothorax. No pleural effusion is identified. The lungs are free of acute opacities. A right s ubclavian Port-A-Cath ends with its tip in the distal superior vena cava. IMPRESSION: 1. Reaccumulation of a small right apical pneumothorax. Reviewed, dictated and finalized at location A. S A TRUCK DRIVER
--- NOTE | ~2022-10-24 | XR_ITS ---
EXAMINATION: XR chest 1V portable INDICATION: Pneumothorax TECHNIQUE: Portable AP chest at 0553 hours COMPARISON: 10/25/2022 FINDINGS: A small right apical pneumothorax persists which is decreased in size. A right chest tube e nds with its tip at the lung apex. No pleural effusion is identified. A right subclavian Port-A-Cath ends with its tip in the distal superior vena cava. The lungs are free of acute opacities. The cardio mediastinal silhouette is normal. IMPRESSION: 1. Small right apical pneumothorax with decrease in size. Reviewed, dictated and finalized at location A. ER TREE FR[employer] NUT [employer]OPS
--- NOTE | ~2022-10-24 | XR_ITS ---
EXAMINATION: XR fl guide central line place INDICATION: Port-A-Cath insertion TECHNIQUE: A single intraoperative fluoroscopic image is submitted for review. Total fluoroscopic allie e was 16.8 seconds. COMPARISON: None available FINDINGS: Fluoroscopic image demonstrates a right subclavian Port-A-Cath ending with its tip in the d istal superior vena cava. Please refer to procedure note for full details. IMPRESSION: 1. Port-A-Cath tip ending in the distal superior vena cava. Reviewed, dictated and finalized at location B. EXPLORATION ENGINEER
--- NOTE | ~2022-10-24 | XR_ITS ---
EXAMINATION: XR chest 1V portable DATE: 10/24/2022 15:01 INDICATION: Right pneumothorax TECHNIQUE: frontal view of the chest was obtained. COMPARISON: Chest radiograph dated 10/24/2022 at 12:30 PM FINDINGS: Continued slow increase of a still small but approaching moderate-sized pneumothorax which remains in the right upper lung zone. There is approximately 3.8 cm maximal separation of the pleural margins c ompared to 2.5 cm the time of the prior study. Mild atelectasis along the right apex and at the right lung base. Left lung remains clear aside from mild left apical pleural-parenchymal scarring. No pleu ral effusion or left-sided pneumothorax. Cardiomediastinal silhouette remains normal and midline. Rig ht subclavian central venous port catheter with distal tip near the superior cavoatrial junction. IMPRESSION: 1. Continued gradual increase in size of a still small right pneumothorax. Reviewed, dictated and finalized at location A. TERIA MONITOR
--- NOTE | ~2022-10-24 | XR_ITS ---
Portable chest x-ray Comparison: 10/27/2022 Clinical History: Pneumothorax Findings: Right-sided Mediport and right-sided chest tube are in place. Minimal right apical pneumot horax is unchanged. Lungs are otherwise clear. Cardiomediastinal silhouette is stable. Bones and sof t tissues are unremarkable. Impression: Stable support tubes with stable minimal right apical pneumothorax. Reviewed, dictated and finalized at location . UI DESIGNER Impression: Stable support tubes with stable minimal right apical pneumothorax.
[2022-10-24] MEDS: LACTATED RINGERS 1,000 ML 30 ML IV CONT (08:30)
--- NOTE | 2022-10-24 08:44 | WPDANESEPPF ---
Anes - Initial Pre Proc Eval Procedure: Operation Date: 10/24/22 10:00 Proposed Procedures p Insertion Kayleigh Cath - Carlos Puri MD Date/Time: 10/24/22 08:44 Surgeon: Carlos Puri MD Pre Op Diagnosis: myelodysplastic syndromes Patient Data Age: 81 Gender: F Height: 1.68 m Weight: 64.09 kg Allergies Allergy/AdvReac Type Severity Reaction Status Date / Time No Known Allergies Allergy Verified 10/21/22 09:17 Home Medications Medication Instructions Recorded Confirmed Type calcium carbonate 500 mg-vitamin 1 tablet PO DAILY 02/01/21 10/21/22 History D3 15 mcg (600 unit) tablet (Os-Oscar 500 + D3) ferrous sulfate 325 mg (65 mg 325 mg PO DAILY 02/01/21 10/21/22 History iron) tablet balsalazide 750 mg capsule 1,500 mg PO BID #360 caps 08/19/21 10/21/22 Rx hydrochlorothiazide 12.5 mg tablet 12.5 mg PO DAILY 10/09/22 10/21/22 History levothyroxine 50 mcg tablet 50 mcg PO DAILY 10/09/22 10/21/22 History lisinopril 40 mg tablet 40 mg PO DAILY 10/09/22 10/21/22 History simvastatin 20 mg tablet 20 mg PO DAILY 10/09/22 10/21/22 History Patient hx anesthesia problems: none Family hx anesthesia problems: none Results Review: All pre-operative results and documents have been reviewed as part of the pre-operative evaluation. [facility] Past Medical History Medical History Chronic kidney disease, stage 3 (moderate) Essential (primary) hypertension Mixed hyperlipidemia Family History Family History Mother Family history of thyroid disease Hypertension Cerebrovascular accident Sibling Hypertension Family history of elevated blood lipids Grandparent Family history of cardiovascular disease Father Family history of pulmonary embolism Social History Social History Smoking packs per day: 0 Smoking cigarettes per day: 0.0 Smoking status: Never smoker Second hand tobacco smoke exposure: No Alcohol intake: current Drinks per week: 1 Alcohol use details: occassional glass of wine. not daily Substance use: never Substance use type: does not use Lack of Transportation: No Lack of Food: Never True Current Housing: I Have Housing Concerned About Future Housing: No Difficulty Paying Gas/Electric Bills: No Difficulty Paying for Meds: No Currently Unemployed: No Education: High School Diploma/GED Difficulty w/ Childcare or Family Care: No Living arrangements: alone Occupation/Education: retired Gender identity (if verbalized by the patient): Female Spiritual care concerns: No Agree to blood products: Yes Anes - Eval Final PreProcedure Day of Procedure 10/24/22 08:44 Patient weight: normal Heart: regular rate and rhythm Lungs: clear to auscultation Airway: Mallampati scale class II Neurological: alert and oriented Last oral intake: >/= 8 hours ASA classification: III Emergent: no Anesthetic plan: proceed Anesthesia type and monitoring: general GIVS and standard monitoring Results Review: All pre-operative results and documents have been reviewed as part of the pre-operative evaluation. Informed Consent: The patient's anesthetic plan and its attendant risks and benefits were discussed with the patient/family/POA. Questions were solicited and answers provided to the satisfaction of the patient/family/POA.
[2022-10-24] MEDS: KETOROLAC 15 MG/ML VIAL (*BKC) IV PUSH (08:45)
[2022-10-24 08:47] LABS: Eosinophils Percent Auto 0.6 % (0-4.4); Hematocrit 24.1 % (37.0-47.0); Immature Granulocyte Absolute 0.03 K/mm3 (0.00-0.031); Immature Granulocyte Percent A 1.9 % (0-0.5); Immature Platelet Fraction Pct 10.1 % (0.9-11.2); Lymphocytes Absolute Auto 0.62 K/mm3 (0.9-3.2); Lymphocytes Percent Auto 40.3 % (18.3-44.2); Mean Corpuscular HGB Conc 33.2 g/dl (32-36); Mean Corpuscular Hemoglobin 30.3 pg (26-34); Mean Corpuscular Volume 91.3 fl (80-100); Mean Platelet Volume 9.2 fl (7.4-10.4); Monocytes Absolute Auto 0.4 K/mm3 (0.1-0.6); Monocytes Percent Auto 22.7 % (2.6-8.5); Neutrophils Absolute Auto 0.5 K/mm3 (1.3-6.7); Neutrophils Percent Auto 34.5 % (45.5-73.1); Platelet Count Result 55 k/mm3 (150-375); Red Blood Count 2.64 M/mm3 (4.2-5.4); Red Cell Distribution Width 18.2 % (11.5-14.5)
[2022-10-24 08:56] LABS: Sodium 139 mmol/L (137-145)
[2022-10-24 09:10] LABS: Partial Thromboplastin Time 37.2 SECONDS (22.3-36.8)
[2022-10-24 09:41] LABS: White Blood Count 1.5 K/mm3 (4.5-10.0)
--- NOTE | 2022-10-24 09:46 | PM.IMHP ---
H&P: HPI History of Present Illness Date/Time: 10/24/22 09:46 Chief Complaint: Myelodyplastic syndrome Narrative: Pt presents with myelodysplastic syndrome and needs a port placed to continue treatment in the oncology clinic. She has not had a port in [place] [address]. Hb is 8.0. WBC is 1500. Review of Systems Review of Systems: The remainder of the review of systems to include constitutional, HEENT, cardiovascular, respiratory, GI, , integumentary, musculoskeletal, endocrine, immunologic, hematologic, psychiatric, and neurologic are all negative except for which is mentioned above in the HPI. [facility] Past Medical History Medical History Chronic kidney disease, stage 3 (moderate) Essential (primary) hypertension Mixed hyperlipidemia Family History Family History Mother Family history of thyroid disease Hypertension Cerebrovascular accident Sibling Hypertension Family history of elevated blood lipids Grandparent Family history of cardiovascular disease Father Family history of pulmonary embolism Social History Social History Smoking packs per day: 0 Smoking cigarettes per day: 0.0 Smoking status: Never smoker Second hand tobacco smoke exposure: No Alcohol intake: current Drinks per week: 1 Alcohol use details: occassional glass of wine. not daily Substance use: never Substance use type: does not use Lack of Transportation: No Lack of Food: Never True Current Housing: I Have Housing Concerned About Future Housing: No Difficulty Paying Gas/Electric Bills: No Difficulty Paying for Meds: No Currently Unemployed: No Education: High School Diploma/GED Difficulty w/ Childcare or Family Care: No Living arrangements: alone Occupation/Education: retired Gender identity (if verbalized by the patient): Female Spiritual care concerns: No Agree to blood products: Yes Meds Home Medications and Allergies Home Medications Medication Instructions Recorded Confirmed Type calcium carbonate 500 mg-vitamin 1 tablet PO DAILY 02/01/21 10/24/22 History D3 15 mcg (600 unit) tablet (Os-Oscar 500 + D3) ferrous sulfate 325 mg (65 mg 325 mg PO DAILY 02/01/21 10/24/22 History iron) tablet balsalazide 750 mg capsule 1,500 mg PO BID #360 caps 08/19/21 10/24/22 Rx hydrochlorothiazide 12.5 mg tablet 12.5 mg PO DAILY 10/09/22 10/24/22 History levothyroxine 50 mcg tablet 50 mcg PO DAILY 10/09/22 10/24/22 History lisinopril 40 mg tablet 40 mg PO DAILY 10/09/22 10/24/22 History simvastatin 20 mg tablet 20 mg PO DAILY 10/09/22 10/24/22 History Allergies Allergy/AdvReac Type Severity Reaction Status Date / Time No Known Allergies Allergy Verified 10/24/22 08:47 Vital Signs Vital Signs - 24 hr 10/24/22 08:30 Temperature 36.7 C Pulse Rate 91 Respiratory Rate 16 Blood Pressure 120/54 L Pulse Oximetry 100 Oxygen Delivery Room Air Exam Const: General: comfortable and no acute distress HENMT: Mouth: Yes moist mucous membranes Eyes: Sclera: sclerae normal Pupils: Equal, round and reactive pupils present Neck: Neck: supple and no JVD Resp: Effort & Inspection: normal respiratory effort Auscultation: clear to auscultation bilaterally Cardio: Rate: regular rate Rhythm: regular rhythm GI: GI Palp: Yes Soft to palpation Auscultation: normal bowel sounds Neuro: Speech: normal speech Motor exam (neuro): 5/5 motor strength present throughout Sensory Exam: normal sensation Extrem: General: normal to inspection Psych: Mental Status: mental status grossly normal Affect: normal affect H&P: Results Labs Labs: Short CBC 10/24/22 Range/Units 08:26 WBC 1.5 L* (4.5-10.0) K/mm3 Hgb 8.0 L (12.0-15.0) g/dL Hct 24.1 L (37.0-47.0) % Plt Count
--- NOTE | 2022-10-24 09:50 | WPDHPUPDATE1 ---
History and Physical Update Update Date/Time: 10/24/22 09:50 History and Physical has been reviewed, including an updated exam of the patient. There are NO changes in the patient's condition. Risks, benefits, and alternatives have been discussed and questions answered. Patient agrees to proceed with procedure.
[2022-10-24 09:52] LABS: Hypochromasia 2+ (NORMAL); Ovalocytes 1+ (NORMAL); Platelet Estimate Decreased (Adequate); Schistocytes None Seen (NORMAL)
[2022-10-24] MEDS: ceFAZolin 2 GM/D5W 50 ML 2 GM/50 ML BAG IVPB (09:56)
[2022-10-24] MEDS: HEPARIN SODIUM 5,000 UNITS/ML VIAL 5000 UNITS IRRIGATION (10:18)
[2022-10-24] MEDS: HEPARIN SODIUM 5,000 UNITS/ML VIAL 1000 UNITS IRRIGATION (10:20)
[2022-10-24] MEDS: LIDO 1%/EPINEPHRINE 1:100,000 20 ML VIAL 30 ML INFILTRATE (10:34)
[2022-10-24] MEDS: BUPivacaine HCL 0.5% PF 30 ML VIAL INFILTRATE (10:35)
--- NOTE | 2022-10-24 13:12 | PM.SD2 ---
Same Day Admit/Disch: HPI History of Present Illness Chief complaint: myelodysplastic syndromes [facility] Past Medical History Medical History Chronic kidney disease, stage 3 (moderate) Essential (primary) hypertension Mixed hyperlipidemia Family History Family History Mother Family history of thyroid disease Hypertension Cerebrovascular accident Sibling Hypertension Family history of elevated blood lipids Grandparent Family history of cardiovascular disease Father Family history of pulmonary embolism Social History Social History Smoking packs per day: 0 Smoking cigarettes per day: 0.0 Smoking status: Never smoker Second hand tobacco smoke exposure: No Alcohol intake: current Drinks per week: 1 Alcohol use details: occassional glass of wine. not daily Substance use: never Substance use type: does not use Lack of Transportation: No Lack of Food: Never True Current Housing: I Have Housing Concerned About Future Housing: No Difficulty Paying Gas/Electric Bills: No Difficulty Paying for Meds: No Currently Unemployed: No Education: High School Diploma/GED Difficulty w/ Childcare or Family Care: No Living arrangements: alone Occupation/Education: retired Gender identity (if verbalized by the patient): Female Spiritual care concerns: No Agree to blood products: Yes Same Day Admit/Disch: Med Pre-admit Medications Home Medications Medication Instructions Recorded Confirmed Type calcium carbonate 500 mg-vitamin 1 tablet PO DAILY 02/01/21 10/24/22 History D3 15 mcg (600 unit) tablet (Os-Oscar 500 + D3) ferrous sulfate 325 mg (65 mg 325 mg PO DAILY 02/01/21 10/24/22 History iron) tablet balsalazide 750 mg capsule 1,500 mg PO BID #360 caps 08/19/21 10/24/22 Rx hydrochlorothiazide 12.5 mg tablet 12.5 mg PO DAILY 10/09/22 10/24/22 History levothyroxine 50 mcg tablet 50 mcg PO DAILY 10/09/22 10/24/22 History lisinopril 40 mg tablet 40 mg PO DAILY 10/09/22 10/24/22 History simvastatin 20 mg tablet 20 mg PO DAILY 10/09/22 10/24/22 History DS: Data Data Completed and Pending Labs on day of discharge: Labs from last 24 hours 10/24/22 10/24/22 10/24/22 08:26 08:26 08:26 WBC 1.5 L* RBC 2.64 L Hgb 8.0 L Hct 24.1 L MCV 91.3 MCH 30.3 MCHC 33.2 RDW 18.2 H Plt Count 55 L MPV 9.2 Immature Gran % (Auto) 1.9 H Neut % (Auto) 34.5 L Lymph % (Auto) 40.3 Ross % (Auto) 22.7 H Eos % (Auto) 0.6 Baso % (Auto) 0.0 L Lymph # (Auto) 0.62 L Ross # (Auto) 0.4 Eos # (Auto) 0.0 Baso # (Auto) 0.0 Abs Immat Gran (auto) 0.03 Absolute Neuts (auto) 0.5 L Absolute Nucleated RBC 0.0 Nucleated RBC % 0.0 Platelet Estimate Decreased % Immature Plt Fraction 10.1 Hypochromasia 2+ Ovalocytes 1+ Schistocytes None seen APTT 37.2 H Sodium 139 DS: Summary Time Spent with Patient Time attestation: Total time spent providing and/or coordinating discharge services: Discharge Plan Discharge Patient Disposition: Home, Self-Care Discharge Instructions: Discharge patient home in stable. May shower in 24 hr. No soaking incision under water x2 weeks. Protect surgical site from any trauma. Resume home medications and any prescriptions for postoperative narcotic medication will be sent to the patient's pharmacy. Use Tylenol or Ibuprofen OTC as needed for pain. Can discharge if CXR reading ok. Skin Adhesive Care Skin adhesive is medical glue used to close wounds. It is a substitute for bladmiir and stitches. Skin adhesive wound closures take less time and do not require anesthesia. You have less pain and a lower risk of infection than with bladimir or stitches. Skin adhesive will fall off after the wound is healed. Dis
--- NOTE | 2022-10-24 13:17 | WPDHPUPDATE1 ---
History and Physical Update Update Date/Time: 10/24/22 13:17 History and Physical has been reviewed, including an updated exam of the patient. There are NO changes in the patient's condition. Risks, benefits, and alternatives have been discussed and questions answered. Patient agrees to proceed with procedure.
--- NOTE | 2022-10-24 13:17 | PM.IMHP ---
H&P: HPI History of Present Illness Date/Time: 10/24/22 13:17 Chief Complaint: Iatrogenic right pneumothorax after aurelia catheter placement Narrative: Lurdes Johnson is a 81 year old female who presented for placement of a port catheter today for treatment of myelodysplastic syndrome. She had placement of the right subclavian vein Port-A-Cath but unfortunately she developed a iatrogenic right pneumothorax on chest x-ray. Initial chest x-ray showed a small 5% pneumothorax in the right apex and a chest x-ray 2hours later showed an approximately 10 to 15 % right apical pneumothorax. The patient has remained completely asymptomatic and denies any chest pain or any shortness of breath. I have discussed this with patient and her daughter at the bedside and I feel that she should remain very close observation in the hospital. Should she develop any shortness of breath or any right chest pain than she will need an emergent decompression with placement of a right chest tube. Review of Systems Review of Systems: I have discussed the patient with Dena Mendoza APN and agree with the documented note below and care plan. [facility] Past Medical History Medical History Chronic kidney disease, stage 3 (moderate) Essential (primary) hypertension Mixed hyperlipidemia Family History Family History Mother Family history of thyroid disease Hypertension Cerebrovascular accident Sibling Hypertension Family history of elevated blood lipids Grandparent Family history of cardiovascular disease Father Family history of pulmonary embolism Social History Social History Smoking packs per day: 0 Smoking cigarettes per day: 0.0 Smoking status: Never smoker Second hand tobacco smoke exposure: No Alcohol intake: current Drinks per week: 1 Alcohol use details: occassional glass of wine. not daily Substance use: never Substance use type: does not use Lack of Transportation: No Lack of Food: Never True Current Housing: I Have Housing Concerned About Future Housing: No Difficulty Paying Gas/Electric Bills: No Difficulty Paying for Meds: No Currently Unemployed: No Education: High School Diploma/GED Difficulty w/ Childcare or Family Care: No Living arrangements: alone Occupation/Education: retired Gender identity (if verbalized by the patient): Female Spiritual care concerns: No Agree to blood products: Yes Meds Home Medications and Allergies Home Medications Medication Instructions Recorded Confirmed Type calcium carbonate 500 mg-vitamin 1 tablet PO DAILY 02/01/21 10/24/22 History D3 15 mcg (600 unit) tablet (Os-Oscar 500 + D3) ferrous sulfate 325 mg (65 mg 325 mg PO DAILY 02/01/21 10/24/22 History iron) tablet balsalazide 750 mg capsule 1,500 mg PO BID #360 caps 08/19/21 10/24/22 Rx hydrochlorothiazide 12.5 mg tablet 12.5 mg PO DAILY 10/09/22 10/24/22 History levothyroxine 50 mcg tablet 50 mcg PO DAILY 10/09/22 10/24/22 History lisinopril 40 mg tablet 40 mg PO DAILY 10/09/22 10/24/22 History simvastatin 20 mg tablet 20 mg PO DAILY 10/09/22 10/24/22 History Allergies Allergy/AdvReac Type Severity Reaction Status Date / Time No Known Allergies Allergy Verified 10/24/22 08:47 Vital Signs Vital Signs - 24 hr 10/24/22 08:30 10/24/22 10:44 10/24/22 11:15 Temperature 36.7 C Pulse Rate 91 88 88 Respiratory Rate 16 18 Blood Pressure 120/54 L 103/41 L 118/44 L Pulse Oximetry 100 100 Oxygen Delivery Room Air Room Air Room Air 10/24/22 11:45 10/24/22 12:15 Temperature Pulse Rate 96 91 Respiratory Rate 16 12 Blood Pressure 113/55 L 115/48 L Pulse Oximetry 100 100 Oxygen Delivery Room Air Room Air Exam Const: General: comfortable and no acute distress HENMT: Mouth: Yes moist mucous memb
--- NOTE | 2022-10-24 13:23 | SUR.PHASEII ---
Pneumothorax increased with second x-ray. Patient is asymptomatic at this time. 6L high flow oxygen applied to patient. RN is waiting for a bed for patient to be admitted.
--- NOTE | 2022-10-24 15:00 | ADMGEN ---
This patient, Lurdes Johnson, was admitted to Intensive Care Unit-5. Patient/family oriented to hospital policies and general routines including ID bracelet, bed and alarms, visiting hours, pain management, procedures, bathroom and other care routines, personal items, smoking policy, room service/diet, and visiting hours. Information on how to activate the Rapid Response Team has been discussed. Patient/Family are encouraged to report perceived risks to care and to ask questions if they do not understand what they are told or what they should do.
--- NOTE | 2022-10-24 15:32 | PCDIET ---
MST 2 for weight loss of 2-13 ibs in the past 3 months and poor po intake reported. Recommend starting Ensure Compact BID for additional 220 kcals and 9 gms protein. Following.
--- NOTE | 2022-10-24 15:59 | W.PM.PROC2 ---
Procedure Note - Detailed Date of Procedure 10/24/22 Pre-op Diagnosis myelodysplastic syndromes Post-op Diagnosis Same Procedure Performed Placement of right subclavian vein port a catheter with intraoperative fluoroscopy Surgeon Carlos Puri MD Wood Filler Sandra Romero [facility] Anesthesia MAC Indications Patient presents for placement of a Port a catheter for IV access to administer chemotherapy treatment for mild dysplastic syndrome Description of Procedure After informed consent was obtained, the patient was brought to the operating room where she was placed in supine position and then IV sedation was administered. The bilateral upper anterior neck and chest was then prepped and draped in usual sterile fashion. A time-out was then performed identifying the patient as well as procedure to be performed and she was given IV antibiotics. I then had the patient placed in the head-down Trendelenburg position and then I approached placement of the catheter in the right internal jugular vein. Three attempts were used to attempt cannulation of the right internal jugular vein between the 2 heads of the right sternocleidomastoid muscle with a 18gauge spinal needle without success. At this point I then switched over to trying to cannulate the right subclavian vein. I was successful in percutaneously cannulating the right subclavian vein on the 2nd pass. There was return of dark venous appearing blood and so I advanced a guidewire through the needle into the right subclavian vein and into the superior vena cava. Intraoperative fluoroscopy was then used to confirm proper placement of the tip of the guidewire. I then utilized 0.5% Marcaine mixed with 2% lidocaine and injected it in the upper right anterior chest. A transverse incision was then made with a scalpel and the subcutaneous tissues were divided utilizing the cautery down to the anterior pectoralis major fascia. Then with continued electrocautery dissection and blunt finger dissection I created a subcutaneous port pocket. I then advanced a dilator and breakaway sheath over the guidewire and then removed the dilator and guidewire. I then advanced a 9.6 Maori single-lumen catheter through the sheath into the right subclavian vein and subsequently into the right atrium of the heart. Once again intraoperative fluoroscopy was used to visualize the tip of the catheter and I pulled back on the catheter until the tip was at the junction of the superior vena cava and right atrium. The catheter was then cut to the appropriate length at the skin level and attached to the Smart Port. It was then secured in the subcutaneous port pocket with 3 separate 3 0 Prolene sutures. I then irrigated out the port pocket with sterile saline solution and accessed the port percutaneously. It jacoby back blood easily and was flushed with heparinized saline solution. I then closed the incision utilizing interrupted 3 0 Vicryl sutures in the subcutaneous tissues. The skin edges were then approximated utilizing a running subcuticular 4 0 Monocryl suture. Lastly I percutaneously accessed the port 1 last time and again it jacoby back blood easily. I then flushed with 5000 units of heparin. The incision was then cleaned and skin glue was applied. The patient tolerated procedure well. Estimated blood-loss during the procedure was 15cc. All sponge needle sponge counts were correct at the end the procedure. The patient was then taken to recovery in stable condition. Post-procedure chest x-ray showed a small iatrogenic apical pneumothorax measuring between 5 and 10%. The patient was totally asymptomatic in regards to the pneumothorax. She will be monitored very closely in the hospital overnight in case the pneumothorax enlarges and she would need to have a chest tube placed. Implants 9.6 german single lumen catheter with Smart Port Estimated Blood Loss 15 Drains No Packing No Pathology None sent Complications Other complication
[2022-10-24] MEDS: HYDROcodone/acetaminophen (*CRX) 5-325 MG TABLET 1 TAB PO ×2 (17:41→23:16)
--- NOTE | 2022-10-24 18:02 | PHAR ---
RX [id number] [facility] CONTAINS DRUG NAME: BALSALAZIDE DISODIUM INGREDIENTS: BALSALAZIDE DISODIUM -- 750 MG COLOR: OPAQUE WHITE IMPRINT: APO B750 FORM: ORAL CAPSULE
--- NOTE | 2022-10-24 18:16 | P.OP_ITS ---
Procedure Note - Detailed Date of Procedure 10/24/22 Pre-op Diagnosis Iatrogenic right pneumothorax Post-op Diagnosis Same Procedure Performed Placement of right thoracostomy tube Surgeon Carlos Puri MD Anesthesia Local Indications Patient presented for placement of a Port-A-Cath today. Unfortunately she developed a iatrogenic right pneumothorax after the procedure . Serial chest x- rays have shown the pneumothorax to be slowly enlarging and is now about 25% although she is still asymptomatic. Findings 25% right pneumothorax Description of Procedure After informed consent was obtained from the patient she was placed supine in the hospital room bed and the area of the right lateral chest wall in the mid axillary line was prepped and draped in usual sterile fashion. 1% lidocaine without epinephrine was then injected the subcutaneous tissues around the 5th intercostal space. A small transverse incision was made with a scalpel and then a long 18gauge needle was then used to percutaneously enter the right chest cavity over the top of the rib. I was able to aspirate air easily so I advanced a guidewire through the needle into the right chest cavity. The needle was then removed and dilators were advanced over the guidewire to enlarge the thoracostomy opening. Lastly a 15 Arabic Quick-Thal thoracostomy tube was advanced over the guidewire into the right chest cavity with the tip towards the apex. A guidewire was then removed leaving the chest tube in place. The chest tube was then placed to 20cm of Pleur-evac suction. The chest tube was then secured in place with a 2-0 silk suture. It was then dressed with petroleum gauze, 4x4 gauze, and silk tape. Postprocedure chest x-ray showed resolution of the right pneumothorax with the tip of the chest to at the apex of the right c hest cavity. The patient tolerated the procedure well there were no complications. All sponge, needles, and instrument counts were correct at the end the procedure. EBL was 5cc. She was left in the hospital room in stable and improved condition. Implants Quick-Thal chest tube right chest Estimated Blood Loss 5 Urine Output 300 Drains Yes ( Right chest tube) Packing No Pathology None sent Complications No immediate complications Condition Stable Disposition ICU [facility] Billing Surgery - Charge Forward: Surgery Billing
[2022-10-24] MEDS: MORPHINE SULFATE (*CRX) 2 MG/ML INJ IV PUSH (19:31)
[2022-10-25] VITALS (11 sets, daily range): BP systolic 122–129; BP diastolic 53–64; PULSE 68–105; RESP 16–23; TEMP 36.8–37.4; O2SAT 95–100
[2022-10-25] MEDS: HYDROcodone/acetaminophen (*CRX) 5-325 MG TABLET 1 TAB PO ×3 (05:13→21:18)
[2022-10-25] MEDS: LEVOTHYROXINE SODIUM 50 MCG TABLET PO (06:41)
--- NOTE | 2022-10-25 09:38 | WPDPN ---
Progress Note: A&P Assessment and Plan (1) Pneumothorax, right: Code(s): J93.9 - Pneumothorax, unspecified Status: Acute Assessment and Plan: Right chest tube in place. Pneumothorax has resolved. Will place chest tube to water seal this am and get pCXR in 4 hrs. Hopefully can take out chest tube tomorrow and discharge her home. Ok to transfer from IMU to regular floor today. Subjective Date/time seen: 10/25/22 09:38 Interval history: Pt doing well. No SOB. Some mild chest discomfort with deep breath. CXR this AM no residual right pneumothorax. Chest tube remained the suction overnight. Exam Narrative: Right chest tube in place. Dressing intact and dry. No air leak in water seal chamber. Right anterior chest port site with some bruising and small hematoma that is not expanding. No bleeding. Objective Data Vital Signs Vital Signs: Vital Signs - 24 hr 10/24/22 10:44 10/24/22 11:15 10/24/22 11:45 Temperature Pulse Rate 88 88 96 Respiratory Rate 18 16 Blood Pressure 103/41 L 118/44 L 113/55 L Pulse Oximetry 100 100 Oxygen Delivery Room Air Room Air Room Air Oxygen Flow Rate 10/24/22 12:15 10/24/22 12:45 10/24/22 13:15 Temperature Pulse Rate 91 90 91 Respiratory Rate 12 16 Blood Pressure 115/48 L 121/60 113/66 Pulse Oximetry 100 100 Oxygen Delivery Room Air Room Air High Flow Therapy with Na Oxygen Flow Rate 6 10/24/22 13:45 10/24/22 14:15 10/24/22 16:00 Temperature Pulse Rate 86 87 86 Respiratory Rate 16 Blood Pressure 112/56 L 110/51 L Pulse Oximetry 100 99 Oxygen Delivery High Flow Therapy with Na High Flow Therapy with Na Oxygen Flow Rate 6 6 10/24/22 16:00 10/24/22 16:00 10/24/22 18:00 Temperature 36.6 C Pulse Rate 86 86 83 Respiratory Rate 21 H 21 H Blood Pressure 98/83 L Pulse Oximetry 98 98 Oxygen Delivery High Flow Nasal Cannula Oxygen Flow Rate 6 10/24/22 20:00 10/24/22 20:00 10/24/22 20:00 Temperature 36.7 C Pulse Rate 85 85 85 Respiratory Rate 22 H 22 H Blood Pressure 144/77 H Pulse Oximetry 96 96 Oxygen Delivery Room Air Oxygen Flow Rate 10/24/22 22:00 10/24/22 23:40 10/25/22 00:00 Temperature Pulse Rate 81 80 68 Respiratory Rate Blood Pressure Pulse Oximetry 100 Oxygen Delivery Room Air Oxygen Flow Rate 10/25/22 00:00 10/25/22 02:00 10/25/22 04:00 Temperature 36.8 C Pulse Rate 68 82 84 Respiratory Rate 23 H 21 H Blood Pressure 124/58 L Pulse Oximetry 97 97 Oxygen Delivery Room Air Oxygen Flow Rate 10/25/22 04:00 10/25/22 04:00 10/25/22 06:00 Temperature 36.8 C Pulse Rate 84 84 90 Respiratory Rate 21 H Blood Pressure 128/60 Pulse Oximetry 97 Oxygen Delivery Oxygen Flow Rate 10/25/22 08:00 Temperature 37.1 C Pulse Rate 91 Respiratory Rate 21 H Blood Pressure 129/64 Pulse Oximetry 96 Oxygen Delivery Oxygen Flow Rate Intake/Output Intake/Output: Intake & Output 10/22/22 10/23/22 10/24/22 10/25/22 23:59 23:59 23:59 23:59 Intake Total 400 750 Output Total 600 135 Balance -200 615 Meds/Results Medications: Active Medications Generic Name Dose Route Start Last Admin Trade Name Freq PRN Reason Stop Dose Admin Hydrocodone Bitart/Acetaminophen 1 tab 10/24/22 13:07 10/25/22 05:13 Hydrocodone/Acetaminophen (*Crx) 5-325 Mg Tablet PO 1 tab Q6H PRN Administration Pain Rated 4-6 Calcium Carbonate 500 mg 10/25/22 17:00 Calcium/Vitamin D 500 Mg Tablet PO DAILY@1700 [facility] Fentanyl Citrate 25 mcg 10/24/22 08:16 Fentanyl Citrate Inj (*Crx) 100 Mcg/2 Ml Vial IV PUSH Q2M PRN Pain Ferrous Sulfate 324 mg 10/25/22 12:00 Ferrous Sulfate 324 Mg Tablet PO DAILY@1200 [facility] Home Med 2 each 10/24/22 17:00 10/25/22 09:08 (Balsalazide 750 Mg Capsule)Home Medication PO 11/23/22 16:59 2 each BID [facility] Administration Hydrochlorothiazide 12.5 mg 10/25/22 09
[2022-10-25] MEDS: SIMVASTATIN 20 MG TABLET PO (09:58)
[2022-10-25] MEDS: hydroCHLOROthiazide 12.5 MG CAPSULE PO (09:58)
[2022-10-25] MEDS: lisinopriL 20 MG TABLET 40 MG PO (09:58)
[2022-10-25] MEDS: FERROUS SULFATE 324 MG TABLET PO (12:20)
--- NOTE | 2022-10-25 13:22 | PC.NURSE ---
Chest tube set to water seal at 0950 per physician order.
--- NOTE | 2022-10-25 15:09 | PC.NURSE ---
Report given to GO Scott with 3 med-surg. Patient to transfer to room 311.
--- NOTE | 2022-10-25 17:47 | PC.NURSE ---
Chest tube placed back to -20 cm H2O of suction at 1603 per MD orders.
--- NOTE | 2022-10-25 18:43 | ADMGEN ---
This patient, Lurdes Johnson, was admitted to 3 [facility] Surg Room 311-01 from ICU @ 1830. Patient/family oriented to hospital policies and general routines including ID bracelet, bed and alarms, visiting hours, pain management, procedures, bathroom and other care routines, personal items, smoking policy, room service/diet, and visiting hours. Information on how to activate the Rapid Response Team has been discussed. Patient/Family are encouraged to report perceived risks to care and to ask questions if they do not understand what they are told or what they should do.
[2022-10-26] VITALS: BP 134/57; PULSE 101; RESP 18; TEMP 37.1; O2SAT 98
[2022-10-26] MEDS: LEVOTHYROXINE SODIUM 50 MCG TABLET PO (06:42)
[2022-10-26 08:00] VITALS: BP 135/56; PULSE 97; RESP 20; TEMP 36.4; O2SAT 98
[2022-10-26] MEDS: lisinopriL 20 MG TABLET 40 MG PO (08:37)
[2022-10-26] MEDS: hydroCHLOROthiazide 12.5 MG CAPSULE PO (08:37)
[2022-10-26] MEDS: SIMVASTATIN 20 MG TABLET PO (08:38)
[2022-10-26] MEDS: FERROUS SULFATE 324 MG TABLET PO (11:27)
[2022-10-26] MEDS: HYDROcodone/acetaminophen (*CRX) 5-325 MG TABLET 1 TAB PO ×2 (11:34→21:04)
--- NOTE | 2022-10-26 14:07 | PM.PNGS ---
Progress Note: A&P Assessment and Plan (1) Pneumothorax, right: Code(s): J93.9 - Pneumothorax, unspecified Status: Acute Assessment and Plan: We will continue to have the right chest tube to suction today. Repeat chest x-ray tomorrow morning and if there is full expansion of the lung or only a small apical pneumothorax that is unchanged from today then would plan on going to water-seal for the chest tube tomorrow. Subjective Subjective Date/Time Seen: 10/26/22 14:07 Interval history: Patient remaines stable. No shortness . He is able to pull about [id number] on her incentive spirometry. No issues with tolerating regular diet. Chest x-ray today showed smaller right apical pneumothorax with chest tube on suction overnight. Exam Narrative: Right chest to shows no air leak with deep cough. Output is not minimal serous. Chest tube site is dressed without any bleeding. Resp: Effort & Inspection: normal respiratory effort Auscultation: clear to auscultation bilaterally Cardio: Rate: regular rate Rhythm: regular rhythm GI: GI Palp: Yes Soft to palpation Auscultation: normal bowel sounds Objective Data Vital Signs Vital Signs: Vital Signs - 24 hr 10/25/22 16:00 10/25/22 21:16 10/26/22 00:00 Temperature 37.0 C 37.1 C Pulse Rate 105 H 101 H Respiratory Rate 17 18 Blood Pressure 122/55 L 134/57 L Pulse Oximetry 100 95 98 Oxygen Delivery Room Air 10/25/22 20:00 10/26/22 08:00 Temperature 36.4 C Pulse Rate 94 97 Respiratory Rate 16 20 Blood Pressure 135/56 L Pulse Oximetry 97 98 Oxygen Delivery Room Air Intake/Output Intake/Output: Intake & Output 10/23/22 10/24/22 10/25/22 10/26/22 23:59 23:59 23:59 23:59 Intake Total 400 1326 1316 Output Total 600 738 500 Balance -200 588 816 Meds/Results Medications: Active Medications Generic Name Dose Route Start Last Admin Trade Name Freq PRN Reason Stop Dose Admin Hydrocodone Bitart/Acetaminophen 1 tab 10/24/22 13:07 10/26/22 11:34 Hydrocodone/Acetaminophen (*Crx) 5-325 Mg Tablet PO 1 tab Q6H PRN Administration Pain Rated 4-6 Calcium Carbonate 500 mg 10/25/22 17:00 10/25/22 17:52 Calcium/Vitamin D 500 Mg Tablet PO 500 mg DAILY@1700 [facility] Administration Fentanyl Citrate 25 mcg 10/24/22 08:16 Fentanyl Citrate Inj (*Crx) 100 Mcg/2 Ml Vial IV PUSH Q2M PRN Pain Ferrous Sulfate 324 mg 10/25/22 12:00 10/26/22 11:27 Ferrous Sulfate 324 Mg Tablet PO 324 mg DAILY@1200 [facility] Administration Home Med 2 each 10/24/22 17:00 10/26/22 08:38 (Balsalazide 750 Mg Capsule)Home Medication PO 11/23/22 16:59 2 each BID [facility] Administration Hydrochlorothiazide 12.5 mg 10/25/22 09:00 10/26/22 08:37 Hydrochlorothiazide 12.5 Mg Capsule PO 12.5 mg DAILY [facility] Administration Levothyroxine Sodium 50 mcg 10/25/22 06:30 10/26/22 06:42 Levothyroxine Sodium 50 Mcg Tablet PO 50 mcg DAILY@0630 [facility] Administration Lisinopril 40 mg 10/25/22 09:00 10/26/22 08:37 Lisinopril 20 Mg Tablet PO 40 mg DAILY [facility] Administration Morphine Sulfate 2 mg 10/24/22 17:55 10/24/22 19:31 Morphine Sulfate (*Crx) 2 Mg/Ml Inj IV PUSH 2 mg Q2H PRN Administration Pain Rated 7-10 Ondansetron HCl 4 mg 10/24/22 08:16 Ondansetron Inj 4 Mg/2 Ml Vial IV PUSH ONCE PRN Nausea Oxycodone HCl 5 mg 10/24/22 08:16 Oxycodone Hcl (*Crx) 5 Mg Tab Ir PO ONCE PRN Pain Simvastatin 20 mg 10/25/22 09:00 10/26/22 08:38 Simvastatin 20 Mg Tablet PO 20 mg DAILY [facility] Administration Radiology Results: ITS Impressions Central Venous Line 10/24/22 11:57 IMPRESSION: 1. Port-A-Cath tip ending in the distal superior vena cava. Chest X-Ray 10/26/22 07:50 IMPRESSION: 1. Small right apical pneumothorax with decrease in size.
[2022-10-26 16:00] VITALS: BP 127/70; PULSE 112; RESP 20; TEMP 37.2; O2SAT 95
[2022-10-26 20:00] VITALS: PULSE 106; RESP 17; O2SAT 97
[2022-10-27] VITALS: BP 138/51; PULSE 106; RESP 17; TEMP 37.5; O2SAT 97
[2022-10-27] MEDS: LEVOTHYROXINE SODIUM 50 MCG TABLET PO (05:24)
[2022-10-27] MEDS: hydroCHLOROthiazide 12.5 MG CAPSULE PO (08:55)
[2022-10-27] MEDS: lisinopriL 20 MG TABLET 40 MG PO (08:55)
[2022-10-27] MEDS: HYDROcodone/acetaminophen (*CRX) 5-325 MG TABLET 1 TAB PO ×2 (08:56→17:08)
--- NOTE | 2022-10-27 11:24 | PM.PNGS ---
Progress Note: A&P Assessment and Plan (1) Pneumothorax, right: Code(s): J93.9 - Pneumothorax, unspecified Status: Acute Assessment and Plan: Chest x-ray this morning showed improvement in the now tiny right apical pneumothorax. Chest tube put to water seal this morning. Will repeat a chest x-ray this afternoon and may be able to remove chest tube if the chest x-ray is stable. Plan I have discussed the patient's case and plan of care with Dr. Puri. Patient also complaining of low back pain she feels is related to her arthritis. Will add Tylenol, which she typically takes at home for pain, and nursing will also get her a heating pad. Subjective Subjective Date/Time Seen: 10/27/22 11:24 Post Op day: 3 (Placement of right subclavian vein port a catheter with intraoperative fluoroscopy, Placement of right thoracostomy tube) Patient reports: tolerating a regular diet and voiding w/o difficulty Interval history: Patient doing well today. Denies any shortness of breath or chest pain. Nursing has already put her chest tube to water seal this morning. Her only complaint at this time is low back pain that she relates to her arthritis. She has gotten up to the chair this morning to see if this helps with her back pain as she has been lying in bed for 2 days. She was also given [place] this morning for the back pain, which has helped. She states she typically takes 2 Extra-strength Tylenol at home. Exam Const: General: comfortable and no acute distress Orientation/consciousness: patient oriented x3 Chest: Chest palpation & inspection: no crepitus Other: Right chest incision dry and glue intact, minimal localized ecchymosis Right lateral chest tube on water seal with no air leak, dressing dry and intact Resp: Effort & Inspection: normal respiratory effort Auscultation: clear to auscultation bilaterally Psych: Mental Status: mental status grossly normal Judgement: Good judgement present (Psych) Objective Data Vital Signs Vital Signs: Vital Signs - 24 hr 10/26/22 16:00 10/27/22 00:00 10/26/22 20:00 Temperature 99.0 F 99.5 F Pulse Rate 112 H 106 H 106 H Respiratory Rate 20 17 17 Blood Pressure 127/70 138/51 L Pulse Oximetry 95 97 97 Oxygen Delivery Room Air Intake/Output Intake/Output: Intake & Output 10/24/22 10/25/22 10/26/22 10/27/22 23:59 23:59 23:59 23:59 Intake Total 400 1326 1616 120 Output Total 600 738 500 900 Balance -299 895 2823 -780 Meds/Results Medications: Active Medications Generic Name Dose Route Start Last Admin Trade Name Freq PRN Reason Stop Dose Admin Hydrocodone Bitart/Acetaminophen 1 tab 10/24/22 13:07 10/27/22 08:56 Hydrocodone/Acetaminophen (*Crx) 5-325 Mg Tablet PO 1 tab Q6H PRN Administration Pain Rated 4-6 Calcium Carbonate 500 mg 10/25/22 17:00 10/26/22 17:27 Calcium/Vitamin D 500 Mg Tablet PO 500 mg DAILY@1700 [facility] Administration Fentanyl Citrate 25 mcg 10/24/22 08:16 Fentanyl Citrate Inj (*Crx) 100 Mcg/2 Ml Vial IV PUSH Q2M PRN Pain Ferrous Sulfate 324 mg 10/25/22 12:00 10/26/22 11:27 Ferrous Sulfate 324 Mg Tablet PO 324 mg DAILY@1200 [facility] Administration Home Med 2 each 10/24/22 17:00 10/27/22 08:56 (Balsalazide 750 Mg Capsule)Home Medication PO 11/23/22 16:59 2 each BID [facility] Administration Hydrochlorothiazide 12.5 mg 10/25/22 09:00 10/27/22 08:55 Hydrochlorothiazide 12.5 Mg Capsule PO 12.5 mg DAILY [facility] Administration Levothyroxine Sodium 50 mcg 10/25/22 06:30 10/27/22 05:24 Levothyroxine Sodium 50 Mcg Tablet PO 50 mcg DAILY@0630 [facility] Administration Lisinopril 40 mg 10/25/22 09:00 10/27/22 08:55 Lisinopril 20 Mg Tablet PO 40 mg DAILY [facility] Administration Morphine Sulfate 2 mg 10/24/22 17:55 10/24/22 19:31 Morphine Sulfate (*Crx) 2 Mg/Ml Inj IV PUSH 2 mg Q2H PRN Administration Pain Rated 7-10 Ondansetron HCl 4 mg 10/24/22 08:16 Ondan
[2022-10-27 11:30] VITALS: BMI 23.5
[2022-10-27] MEDS: FERROUS SULFATE 324 MG TABLET PO (11:37)
[2022-10-27] MEDS: ACETAMINOPHEN 500 MG TABLET 1000 MG PO (12:13)
[2022-10-27 14:00] VITALS: BP 99/48; PULSE 90; RESP 19; TEMP 36.3; O2SAT 99
[2022-10-27] MEDS: SIMVASTATIN 20 MG TABLET PO (17:03)
[2022-10-27 20:00] VITALS: PULSE 105; RESP 14; O2SAT 100
[2022-10-27 22:00] VITALS: BP 104/45; PULSE 105; RESP 14; TEMP 37.2; O2SAT 100
[2022-10-28 06:00] VITALS: BP 129/55; PULSE 101; RESP 14; TEMP 36.6; O2SAT 97
[2022-10-28] MEDS: LEVOTHYROXINE SODIUM 50 MCG TABLET PO (06:35)
[2022-10-28] MEDS: HYDROcodone/acetaminophen (*CRX) 5-325 MG TABLET 1 TAB PO (06:35)
[2022-10-28] MEDS: lisinopriL 20 MG TABLET 40 MG PO (08:57)
[2022-10-28] MEDS: hydroCHLOROthiazide 12.5 MG CAPSULE PO (08:58)
--- NOTE | 2022-10-28 09:51 | PM.PNGS ---
Progress Note: A&P Assessment and Plan (1) Pneumothorax, right: Code(s): J93.9 - Pneumothorax, unspecified Status: Acute Assessment and Plan: Chest tube on water seal overnight with repeat chest x-ray this morning showed improvement of the tiny right apical pneumothorax. Chest tube removed at the bedside. Will repeat a chest x-ray in 4 hours. Patient also complaining of generalized weakness. Will await PT/OT eval prior to discharge and plan for therapy needs on discharge according to their recommendations. Will also add a low dose of Flexeril for her muscle spasms. Plan I have discussed the patient's case and plan of care with Dr. Puri. Subjective Subjective Date/Time Seen: 10/28/22 09:51 Interval history: Patient is complaining of low back muscle spasms this morning. Her low back pain yesterday was being relieved with Tylenol and the heating pad. She is now having spasms without any relief. This started after someone startled her this morning when they woke her from sleep. She jerked awake and tensed up and states that since then she has been having low back spasms. She otherwise slept well overnight. No shortness of breath or chest pain. She is having generalized weakness and is waiting to be evaluated by PT/OT today. Her chest tube was on water seal overnight and a repeat CXR this morning showed just a tiny apical right pneumothorax. Review of Systems Review of Systems: All systems reviewed & are unremarkable except as noted in HPI and below Cardiovascular: Cardiovascular: Reports as per HPI, Reports no additional cardiovascular complaints, Denies chest pain and Denies palpitations Respiratory: Respiratory: Reports as per HPI and Reports no additional respiratory complaints Musculoskeletal: Musculoskeletal: Reports no additional musculoskeletal complaints, Reports as per HPI, Denies numbness, Denies radiating pain into limb and Denies tingling Exam Const: General: uncomfortable (due to back pain) Orientation/consciousness: patient oriented x3 Chest: Chest palpation & inspection: no crepitus Other: Right chest incision dry and glue intact, minimal localized ecchymosis Right lateral chest tube on water seal with no air leak, dressing dry and intact. Chest tube dressing removed and chest tube removed at the bedside with a sterile occlusive dressing placed. Resp: Effort & Inspection: normal respiratory effort Auscultation: clear to auscultation bilaterally Cardio: Rate: regular rate Rhythm: regular rhythm Psych: Mental Status: mental status grossly normal Judgement: Good judgement present (Psych) Objective Data Vital Signs Vital Signs: Vital Signs - 24 hr 10/27/22 14:00 10/27/22 22:00 10/27/22 20:00 Temperature 97.4 F L 98.9 F Pulse Rate 90 105 H 105 H Respiratory Rate 19 14 14 Blood Pressure 99/48 L 104/45 L Pulse Oximetry 99 100 100 Oxygen Delivery Room Air 10/28/22 06:00 Temperature 97.9 F Pulse Rate 101 H Respiratory Rate 14 Blood Pressure 129/55 L Pulse Oximetry 97 Oxygen Delivery Intake/Output Intake/Output: Intake & Output 10/25/22 10/26/22 10/27/22 10/28/22 23:59 23:59 23:59 23:59 Intake Total 1326 1616 1360 500 Output Total 738 500 900 150 Balance 588 1116 460 350 Meds/Results Medications: Active Medications Generic Name Dose Route Start Last Admin Trade Name Freq PRN Reason Stop Dose Admin Acetaminophen 1,000 mg 10/27/22 11:42 10/27/22 12:13 Acetaminophen 500 Mg Tablet PO 1,000 mg Q6H PRN Administration Mild Pain (1-3) or Fever Hydrocodone Bitart/Acetaminophen 1 tab 10/24/22 13:07 10/28/22 06:35 Hydrocodone/Acetaminophen (*Crx) 5-325 Mg Tablet PO 1 tab Q6H PRN Administration Pain Rated 4-6 Calcium Carbonate 500 mg 10/25/22 17:00 10/27/22 17:04 Calcium/Vitamin D 500 Mg Tablet PO 500 mg DAILY@1700 [facility] Administration Fentanyl Citrate 25 mcg 10/24/22 08:16 Fentanyl Citrate Inj (*Crx) 100 Mcg/2 Ml
[2022-10-28] MEDS: CYCLOBENZAPRINE HCL 5 MG TABLET PO (11:37)
[2022-10-28] MEDS: FERROUS SULFATE 324 MG TABLET PO (11:38)
[2022-10-28 14:00] VITALS: BP 132/46; PULSE 111; RESP 20; TEMP 37.5; O2SAT 98
[2022-10-28 16:02] VITALS: TEMP 37.5
[2022-10-28] MEDS: ACETAMINOPHEN 500 MG TABLET 1000 MG PO (16:02)
[2022-10-28] MEDS: SIMVASTATIN 20 MG TABLET PO (17:01)
[2022-10-28 17:02] VITALS: TEMP 38.2
[2022-10-28 20:00] VITALS: PULSE 111; RESP 20; O2SAT 98
[2022-10-28 22:00] VITALS: BP 128/51; PULSE 102; RESP 18; TEMP 36.7; O2SAT 99
[2022-10-29] VITALS (16 sets, daily range): BP systolic 101–132; BP diastolic 42–56; PULSE 86–111; RESP 16–22; TEMP 36.1–39.6; O2SAT 94–100
[2022-10-29] MEDS: CYCLOBENZAPRINE HCL 5 MG TABLET PO (06:33)
[2022-10-29] MEDS: LEVOTHYROXINE SODIUM 50 MCG TABLET PO (06:33)
[2022-10-29] MEDS: lisinopriL 20 MG TABLET 40 MG PO (07:42)
[2022-10-29] MEDS: hydroCHLOROthiazide 12.5 MG CAPSULE PO (07:42)
--- NOTE | 2022-10-29 09:49 | PM.PNGS ---
Progress Note: A&P Assessment and Plan (1) Pneumothorax, right: Code(s): J93.9 - Pneumothorax, unspecified Status: Acute Assessment and Plan: Chest tube removed yesterday morning. Repeat chest x-ray in the afternoon showed no residual pneumothorax. She has done well overnight. Therapy recommending rehab after discharge and care coordination is working on placement for SNF. She is still complaining of generalized weakness and low back pain. Will order labs this morning to further evaluate. Continue PT/OT. Plan I have discussed the patient's case and plan of care with Dr. Puri. Subjective Subjective Date/Time Seen: 10/29/22 09:49 Patient reports: no new complaints Interval history: Still complaining of generalized weakness not improving with therapy. She is still having muscle spasms in her lower back and does not feel that the Flexeril has helped this morning. No shortness of breath or chest pain overnight. No other complaints at this time. Review of Systems Review of Systems: ROS unchanged Exam Const: General: no acute distress, tired appearing and uncomfortable (due to back pain) Orientation/consciousness: patient oriented x3 Chest: Chest palpation & inspection: no crepitus Other: Right lateral chest dressing dry and intact Resp: Effort & Inspection: normal respiratory effort Auscultation: clear to auscultation bilaterally Cardio: Rate: regular rate Rhythm: regular rhythm Extrem: General: normal to inspection Psych: Mental Status: mental status grossly normal Judgement: Good judgement present (Psych) Objective Data Vital Signs Vital Signs: Vital Signs - 24 hr 10/28/22 12:04 10/28/22 13:34 10/28/22 16:02 Temperature 99.5 F Pulse Rate Respiratory Rate Blood Pressure Pulse Oximetry Oxygen Delivery Room Air Room Air 10/28/22 14:00 10/28/22 17:02 10/28/22 20:00 Temperature 99.5 F 100.8 F H Pulse Rate 111 H 111 H Respiratory Rate 20 20 Blood Pressure 132/46 L Pulse Oximetry 98 98 Oxygen Delivery Room Air 10/28/22 22:00 10/29/22 06:00 10/29/22 08:00 Temperature 98.1 F 98.4 F Pulse Rate 102 H 101 H Respiratory Rate 18 18 Blood Pressure 128/51 L 126/56 L Pulse Oximetry 99 100 Oxygen Delivery Room Air 10/29/22 09:37 Temperature Pulse Rate Respiratory Rate Blood Pressure Pulse Oximetry 98 Oxygen Delivery Room Air Intake/Output Intake/Output: Intake & Output 10/26/22 10/27/22 10/28/22 10/29/22 23:59 23:59 23:59 23:59 Intake Total 1616 1360 1860 500 Output Total 500 900 150 800 Balance 6420 089 0684 -300 Meds/Results Medications: Active Medications Generic Name Dose Route Start Last Admin Trade Name Freq PRN Reason Stop Dose Admin Acetaminophen 1,000 mg 10/27/22 11:42 10/28/22 16:02 Acetaminophen 500 Mg Tablet PO 1,000 mg Q6H PRN Administration Mild Pain (1-3) or Fever Hydrocodone Bitart/Acetaminophen 1 tab 10/24/22 13:07 10/28/22 06:35 Hydrocodone/Acetaminophen (*Crx) 5-325 Mg Tablet PO 1 tab Q6H PRN Administration Pain Rated 4-6 Calcium Carbonate 500 mg 10/25/22 17:00 10/28/22 17:00 Calcium/Vitamin D 500 Mg Tablet PO 500 mg DAILY@1700 [facility] Administration Cyclobenzaprine HCl 5 mg 10/28/22 11:11 10/29/22 06:33 Cyclobenzaprine Hcl 5 Mg Tablet PO 5 mg Q8H PRN Administration Muscle Spasm Fentanyl Citrate 25 mcg 10/24/22 08:16 Fentanyl Citrate Inj (*Crx) 100 Mcg/2 Ml Vial IV PUSH Q2M PRN Pain Ferrous Sulfate 324 mg 10/25/22 12:00 10/28/22 11:38 Ferrous Sulfate 324 Mg Tablet PO 324 mg DAILY@1200 [facility] Administration Home Med 2 each 10/24/22 17:00 10/29/22 07:43 (Balsalazide 750 Mg Capsule)Home Medication PO 11/23/22 16:59 2 each BID VLADIMIR Administration Hydrochlorothiazide 12.5 mg 10/25/22 09:00 10/29/22 07:42 Hydrochlorothiazide 12.5 Mg Capsule PO 12.5 mg DAILY VLADIMIR Administration Levothyroxine Sodium
[2022-10-29 10:03] LABS: Mean Corpuscular Hemoglobin 29.5 pg (26-34); Mean Corpuscular Volume 92.3 fl (80-100); Mean Platelet Volume 12.2 fl (7.4-10.4); Platelet Count Result 55 k/mm3 (150-375); Red Cell Distribution Width 19.8 % (11.5-14.5)
[2022-10-29 10:09] LABS: White Blood Count 1.7 K/mm3 (4.5-10.0)
[2022-10-29 10:10] LABS: Hematocrit 20.3 % (37.0-47.0); Hemoglobin 6.5 g/dL (12.0-15.0)
[2022-10-29 10:17] LABS: Anion Gap 7 mmol/L (8-16); Blood Urea Nitrogen 25 mg/dL (7-17); Calcium 8.4 mg/dL (8.4-10.2); Carbon Dioxide 29 mmol/L (22-30); Chloride 91 mmol/L (98-107); Estimated CRCL calculation 40 ml/min; Estimated Glomerular Filt Rate 60; Glucose 155 mg/dL (65-110); Potassium 3.7 mmol/L (3.4-5.0); Sodium 127 mmol/L (137-145)
[2022-10-29] MEDS: FERROUS SULFATE 324 MG TABLET PO (11:57)
[2022-10-29] MEDS: ACETAMINOPHEN 500 MG TABLET 1000 MG PO (13:01)
[2022-10-29] MEDS: TUBING, BLOOD PLUM PUMP TUBING 1 EACH XX (13:03)
[2022-10-29] MEDS: SODIUM CHLORIDE 0.9% IV 250 ML 30 ML IV CONT (13:03)
--- NOTE | 2022-10-29 13:10 | PC.NURSE ---
Patient receiving blood and patient spiked fever of 103.2 orally after 15 minutes. Blood was stopped NS started at that time. Dena LONGO called and notified. New orders to give 1000mg of Tylenol and restart blood. Recheck VS after 15 minutes. Spoke with Dena LONGO at [phone]
[2022-10-29] MEDS: SIMVASTATIN 20 MG TABLET PO (16:20)
[2022-10-29] MEDS: HYDROcodone/acetaminophen (*CRX) 5-325 MG TABLET 1 TAB PO (19:38)
[2022-10-29 20:39] LABS: Hemoglobin 8.1 g/dL (12.0-15.0)
--- NOTE | 2022-10-29 23:19 | PC.NURSE ---
hemoglobin 8.1 after 1 unit given on day shift. continue to monitor.
[2022-10-30] VITALS (15 sets, daily range): BP systolic 118–145; BP diastolic 43–61; PULSE 88–111; RESP 18–27; TEMP 36.3–37.7; O2SAT 95–100
[2022-10-30] MEDS: LEVOTHYROXINE SODIUM 50 MCG TABLET PO (05:35)
[2022-10-30 06:19] LABS: Hemoglobin 7.4 g/dL (12.0-15.0); Immature Platelet Fraction Pct 15.9 % (0.9-11.2); Mean Corpuscular HGB Conc 33.6 g/dl (32-36); Mean Corpuscular Hemoglobin 29.6 pg (26-34); Mean Platelet Volume 12.4 fl (7.4-10.4); Platelet Count Result 43 k/mm3 (150-375)
[2022-10-30 06:24] LABS: White Blood Count 1.8 K/mm3 (4.5-10.0)
[2022-10-30 06:36] LABS: Anion Gap 4 mmol/L (8-16); Blood Urea Nitrogen 27 mg/dL (7-17); Carbon Dioxide 29 mmol/L (22-30); Chloride 94 mmol/L (98-107); Estimated CRCL calculation 50 ml/min; Estimated Glomerular Filt Rate > 60; Glucose 113 mg/dL (65-110); Potassium 3.8 mmol/L (3.4-5.0); Sodium 127 mmol/L (137-145)
[2022-10-30] MEDS: lisinopriL 20 MG TABLET 40 MG PO (08:17)
[2022-10-30] MEDS: hydroCHLOROthiazide 12.5 MG CAPSULE PO (08:18)
--- NOTE | 2022-10-30 10:27 | PM.PNGS ---
Progress Note: A&P Assessment and Plan (1) Pneumothorax, right: Code(s): J93.9 - Pneumothorax, unspecified Status: Acute Assessment and Plan: New complaints of right-sided chest pain this morning. Chest tube removed on 10/28/22. Ordered chest x-ray to further evaluate. Still complaining of back pain and muscle spasms. Will stop the Flexeril and try adding a low dose Valium. Will also switch her hydrocodone to oxycodone as needed for pain relief. PT/OT still following patient. Will follow their recommendations regarding placement at discharge if she needs SNF or home with home health. She does have children who all live close to her in [place] and can be available daily to help her at home since she lives alone. (2) Pancytopenia: Code(s): D61.818 - Other pancytopenia Status: Acute Assessment and Plan: Hgb 6.5 yesterday and she received one unit of PRBCs with the hgb up to 8.1. This morning's labs showed a hgb 7.4. Discussed with Dr. Puri. Will order 1 unit PRBCs again today and pre-medicate with Tylenol. Platelets at 43k and WBC at 1.8 noted, continue to monitor. (3) MDS (myelodysplastic syndrome): Code(s): D46.9 - Myelodysplastic syndrome, unspecified Status: Acute Plan I have discussed the patient's case and plan of care with Dr. Puri. Subjective Subjective Date/Time Seen: 10/30/22 09:27 Patient reports: still having pain and afebrile Interval history: Patient seen this morning with her daughter at the bedside. Her main complaint is still back pain. She does not feel it is any better and is not getting any relief with the current medications. She also reports that she is having some right lateral chest pain as well that seems to be radiating pain from her back when she takes a deep breath. No chest pain or pressure when sitting still. Denies any shortness of breath or difficulty breathing. She was able to stand and take a few steps this morning with nursing staff to get to the chair. No other complaints at this time. Her daughter is also voicing concern about her even being able to work with therapy due to her back pain and concerns about being able to go to SNF for rehab and tolerating therapy there. Review of Systems Respiratory: Respiratory: Reports as per HPI, Reports no additional respiratory complaints, Denies change in phlegm color, Denies cough, Reports pain on inspiration, Denies dyspnea and Denies wheezing Gastrointestinal: Gastrointestinal: Reports no additional gastrointestinal complaints, Denies abdominal pain, Denies nausea and Denies vomiting Musculoskeletal: Musculoskeletal: Reports no additional musculoskeletal complaints and Reports as per HPI Exam Const: General: uncomfortable (due to back pain) Orientation/consciousness: patient oriented x3 Chest: Chest palpation & inspection: no crepitus Other: Right lateral chest dressing dry and intact Right anterior chest incision dry and glue intact with mild localized ecchymosis Resp: Effort & Inspection: normal respiratory effort Auscultation: clear to auscultation bilaterally Cardio: Rate: regular rate Rhythm: regular rhythm GI: Auscultation: normal bowel sounds Neuro: Speech: normal speech Motor exam (neuro): 5/5 motor strength present throughout Psych: Mental Status: mental status grossly normal Judgement: Good judgement present (Psych) Objective Data Vital Signs Vital Signs: Vital Signs - 24 hr 10/29/22 12:21 10/29/22 13:01 10/29/22 12:39 Temperature 99.4 F 103.2 F H 103.2 F H Pulse Rate 111 H 109 H Respiratory Rate 22 H 20 Blood Pressure 117/56 L 122/56 L Pulse Oximetry 95 95 Oxygen Delivery 10/29/22 13:44 10/29/22 14:05 10/29/22 14:27 Temperature 99.7 F H 99.1 F 99.7 F H Pulse Rate 103 H 98 93 Respiratory Rate 20 20 20 Blood Pressure 107/51 L 101/49 L 105/48 L Pulse Oximetry 94 95 94 Oxygen Delivery 10/29/22 14:47 10/29/22 15:07 10/29/22 15:24 Temperature 99.0
[2022-10-30] MEDS: diazePAM (*CRX) 5 MG TABLET PO ×2 (10:33→17:29)
[2022-10-30] MEDS: ACETAMINOPHEN 325 MG TABLET 650 MG PO (10:57)
[2022-10-30] MEDS: FERROUS SULFATE 324 MG TABLET PO (11:00)
[2022-10-30] MEDS: SODIUM CHLORIDE 0.9% IV 250 ML 30 ML IV CONT (11:25)
--- NOTE | 2022-10-30 14:11 | PCOTNOTE ---
Attempted to see pt. for occupational therapy treatment. Per nursing, pt. currently getting blood transfusion and is unable to be seen for therapy at this time.
[2022-10-30] MEDS: SIMVASTATIN 20 MG TABLET PO (17:27)
[2022-10-30] MEDS: oxyCODONE/ACETAMINOPHEN (*CRX) 5-325 MG TABLET 1 TABLET PO (20:09)
[2022-10-30] MEDS: ACETAMINOPHEN 500 MG TABLET 1000 MG PO (22:23)
--- NOTE | 2022-10-30 22:28 | PC.NURSE ---
called MD rhodes r/t temp 100, tylenol given hr 110 awaiting call back
[2022-10-31] MEDS: diazePAM (*CRX) 5 MG TABLET PO (05:10)
[2022-10-31] MEDS: oxyCODONE/ACETAMINOPHEN (*CRX) 5-325 MG TABLET 1 TABLET PO (05:10)
[2022-10-31] MEDS: LEVOTHYROXINE SODIUM 50 MCG TABLET PO (05:28)
[2022-10-31 05:31] VITALS: BP 126/92; PULSE 87; RESP 18; TEMP 36.8; O2SAT 100
[2022-10-31 06:16] LABS: Hematocrit 24.9 % (37.0-47.0); Hemoglobin 8.2 g/dL (12.0-15.0); Immature Platelet Fraction Pct 16.5 % (0.9-11.2); Mean Corpuscular HGB Conc 32.9 g/dl (32-36); Mean Corpuscular Hemoglobin 28.7 pg (26-34); Mean Corpuscular Volume 87.1 fl (80-100); Mean Platelet Volume 12.9 fl (7.4-10.4); Platelet Count Result 35 k/mm3 (150-375); Red Blood Count 2.86 M/mm3 (4.2-5.4); Red Cell Distribution Width 18.6 % (11.5-14.5)
[2022-10-31 06:27] LABS: NT Pro B Type Natriuretic Pept 1020 pg/mL (19.9-100)
[2022-10-31 06:39] LABS: White Blood Count 1.8 K/mm3 (4.5-10.0)
[2022-10-31 06:41] VITALS: BP 126/92; PULSE 87; RESP 18; TEMP 36.8; O2SAT 100
--- NOTE | 2022-10-31 06:43 | PC.NURSE ---
informed MD Shah of wbc 1.8
[2022-10-31] MEDS: lisinopriL 20 MG TABLET 40 MG PO (08:01)
[2022-10-31] MEDS: hydroCHLOROthiazide 12.5 MG CAPSULE PO (08:01)
--- NOTE | 2022-10-31 09:00 | PM.PNGS ---
Progress Note: A&P Assessment and Plan (1) Pneumothorax, right: Code(s): J93.9 - Pneumothorax, unspecified Status: Acute Assessment and Plan: Resolved. (2) MDS (myelodysplastic syndrome): Code(s): D46.9 - Myelodysplastic syndrome, unspecified Status: Acute Assessment and Plan: Chronic but she has pancytopenia. She has received 2units of packed red blood cells during this hospitalization. Family would like to have Dr. Mason her oncologist come see her while she is in the hospital and I think that is reasonable. Will consult Dr. Mason to see her. (3) Neck Pain: Code(s): M54.2 - Cervicalgia Status: Acute Assessment and Plan: Her pain is severe this morning. She did not know she did ask for the oral narcotic pain medications. She has been getting scheduled Valium for muscle relaxer. I will give her a dose of Dilaudid IV try to get her under control this morning and then will switch her to Oxy IR for narcotic pain medications on an ongoing basis. Still awaiting decision on disposition for therapy. [facility] facility versus home with PT OT. Subjective Subjective Date/Time Seen: 10/31/22 09:00 Interval history: Patient is sitting up in chair today. She seems to be very uncomfortable complaining of lower back and neck pain. She has known osteoarthritis of the spine and it was felt that the pain has been worse lately due to her prolonged hospitalization and relative immobility. She received another unit of packed red blood cells yesterday and her hemoglobin is 8.2 today. She was complaining of some minor right chest pain yesterday and a chest x-ray showed no evidence of recurrent right pneumothorax . She otherwise has been afebrile and is able to get up to a chair with physical therapy. Review of Systems Review of Systems: I have discussed the patient with Dena Mendoza APN and agree with the documented note below and care plan. Exam Narrative: Patient has equal breath sounds bilaterally. The port site in the right upper anterior chest wall has a resolving small hematoma and resolving ecchymosis. There is no redness or evidence of infection. Objective Data Vital Signs Vital Signs: Vital Signs - 24 hr 10/30/22 10:57 10/30/22 11:10 10/30/22 11:25 Temperature 37.7 C H 37.0 C 37.7 C H Pulse Rate 111 H 103 H Respiratory Rate 27 H 22 H Blood Pressure 145/54 H 118/45 L Pulse Oximetry 99 95 Oxygen Delivery 10/30/22 11:57 10/30/22 12:25 10/30/22 12:25 Temperature 37.2 C 37.5 C 36.9 C Pulse Rate 96 96 Respiratory Rate 24 H 24 H Blood Pressure 124/48 L 124/48 L Pulse Oximetry 95 95 Oxygen Delivery 10/30/22 13:25 10/30/22 14:25 10/30/22 14:00 Temperature 36.8 C 36.8 C 36.8 C Pulse Rate 88 89 88 Respiratory Rate 27 H 22 H 27 H Blood Pressure 125/50 L 120/43 L 125/50 L Pulse Oximetry 97 100 97 Oxygen Delivery 10/30/22 20:00 10/30/22 22:00 10/30/22 22:23 Temperature 37.7 C H 37.7 C H Pulse Rate 110 H Respiratory Rate 18 Blood Pressure 144/61 H Pulse Oximetry 97 Oxygen Delivery Room Air 10/30/22 22:27 10/30/22 22:51 10/30/22 23:33 Temperature 37.7 C H 36.8 C 36.8 C Pulse Rate 110 H Respiratory Rate 18 Blood Pressure 144/61 H Pulse Oximetry 97 Oxygen Delivery Room Air 10/31/22 05:31 10/31/22 06:41 Temperature 36.8 C 36.8 C Pulse Rate 87 87 Respiratory Rate 18 18 Blood Pressure 126/92 H 126/92 H Pulse Oximetry 100 100 Oxygen Delivery Room Air Intake/Output Intake/Output: Intake & Output 10/28/22 10/29/22 10/30/22 10/31/22 23:59 23:59 23:59 23:59 Intake Total 1860 1170 1130 Output Total 150 1050 1100 250 Balance 1710 120 30 -250 Meds/Results Medications: Active Medications Generic Name Dose Route Start Last Admin Trade Name Freq PRN Reason Stop Dose Admin Acetaminophen 1,000 mg 10/27/22 11:42 10/30/22 22:23 Acetaminophen 500 Mg Tablet PO 1,000 mg
[2022-10-31] MEDS: HYDROmorphone HCL INJ (*CRX) 1 MG/ML SYR 0.5 MG IV PUSH ×2 (09:35→12:39)
--- NOTE | 2022-10-31 09:42 | PCOTNOTE ---
Attempted to see patient this am. Pt declined due to pain. Pt reported just taking pain medicine, Maybe I can try to eat now. I couldn't reach it, because it hurt.
[2022-10-31] MEDS: FERROUS SULFATE 324 MG TABLET PO (12:19)
[2022-10-31 13:54] VITALS: BP 158/71; PULSE 115; RESP 18; TEMP 37.3; O2SAT 98
--- NOTE | 2022-10-31 17:33 | PDONCCN ---
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 Patient is status post bone marrow biopsy done on October 10, 2022 that showed 7% myeloblast. She was referred for MediPort placement to start chemotherapy with decitabine. Patient had right-sided pneumothorax after the Port-A-Cath placement. Patient had right thoracostomy tube placement subsequently. She is feeling better and denies any shortness of breath. She remains quite pancytopenic. Patient received 2 units of packed red blood cell on October 29, 2022. She has some neck and back arthralgia. Denies any fevers and chills. No other new complaints. Review of Systems - Review of Systems All systems reviewed & are unremarkable except as noted in HPI and bel - Neurologic Denies numbness, Denies tingling PMFSH Medical History: Medical History (Last Reviewed 10/24/22 @ 13:18 by Carlos Puri MD) Chronic kidney disease, stage 3 (moderate) Essential (primary) hypertension Mixed hyperlipidemia Family History: Family History (Last Reviewed 10/24/22 @ 15:15 by Yvonne Og RN) Mother Family history of thyroid disease Hypertension Cerebrovascular accident Sibling Hypertension Family history of elevated blood lipids Grandparent Family history of cardiovascular disease Father Family history of pulmonary embolism - Social History Social History: Social History (Last Reviewed 10/24/22 @ 13:18 by Carlos Puri MD) Gender Identity: Gender identity (if verbalized by the patient): Female Alcohol Use: Alcohol intake: current Drinks per week: 1 Alcohol use details: occassional glass of wine. not daily Substance Use: Substance use: never Substance use type: does not use Others: Spiritual care concerns: No Agree to blood products: Yes Living Arrangements: Living arrangements: alone Oppucation/Education: Occupation/Education: retired Smoking Status: Smoking status: Never smoker Second hand tobacco smoke exposure: No Smoking Pack-years: Smoking packs per day: 0 Smoking cigarettes per day: 0 Social Determinants of Health: Has the Lack of Transportation Kept You From Medical Appointments or From Getting Medications?: No Within the Past 12 Months, Were You Worried Whether Your Food Would Run Out Before You Got Money to Buy More?: Never True What is Your Housing Situation Today?: I Have Housing Are You Worried That in the Next 2 Months, You May Not Have Your Own Housing to Live In?: No Do You Have Trouble Paying Your Heating Or Electricity Bill?: No Do You Have Trouble Paying For Medicines?: No Are You Currently Unemployed and Looking for Work?: Decline to Answer Highest Level of Education Completed: Decline to Answer Do You Have Trouble With Childcare or the Care of a Family Member?: No Exam - Vital Signs Vital Signs - 24 hr 10/30/22 20:00 10/30/22 22:00 10/30/22 22:23 Temperature 37.7 C H 37.7 C H Pulse Rate 110 H Respiratory Rate 18 Blood Pressure 144/61 H Pulse Oximetry 97 Oxygen Delivery Room Air 10/30/22 22:27 10/30/22 22:51 10/30/22 23:33 Temperature 37.7 C H 36.8 C 36.8 C Pulse Rate 110 H Respiratory Rate 18 Blood Pressure 144/61 H Pulse Oximetry 97 Oxygen Delivery Room Air 10/31/22 05:31 10/31/22 06:41 10/31/22 08:00 Temperature 36.8 C 36.8 C Pulse Rate 87 87 Respiratory Rate 18 18 Blood Pressure 126/92 H 126/92 H Pulse Oximetry 100 100 Oxygen Delivery Room Air Room Air 10/31/22 13:54 Temperature 37.3 C Pulse Rate 115 H Respiratory Rate 18 Blood Pressure 158/71 H Pulse Oximetry 98 Oxygen Delive
[2022-10-31] MEDS: SIMVASTATIN 20 MG TABLET PO (19:05)
[2022-10-31 19:55] VITALS: O2SAT 98
[2022-10-31 22:00] VITALS: BP 158/61; PULSE 103; RESP 13; TEMP 37.3; O2SAT 96
[2022-11-01] MEDS: ACETAMINOPHEN 500 MG TABLET 1000 MG PO (04:31)
[2022-11-01] MEDS: oxyCODONE HCL (*CRX) 5 MG TAB IR PO ×2 (04:31→08:59)
[2022-11-01] MEDS: diazePAM (*CRX) 5 MG TABLET PO (04:32)
[2022-11-01 05:45] VITALS: BP 150/67; PULSE 100; RESP 14; TEMP 36.5; O2SAT 98
[2022-11-01] MEDS: LEVOTHYROXINE SODIUM 50 MCG TABLET PO (05:54)
[2022-11-01] MEDS: predniSONE 5 MG TABLET PO (09:00)
[2022-11-01] MEDS: lisinopriL 20 MG TABLET 40 MG PO (09:00)
[2022-11-01] MEDS: ACYCLOVIR 400 MG TABLET PO (09:00)
[2022-11-01] MEDS: hydroCHLOROthiazide 12.5 MG CAPSULE PO (09:01)
[2022-11-01] MEDS: SULFAMETHOXAZOLE/TRIMETHOPRIM 800/160 MG DS TABLET 1 TAB PO (09:01)
[2022-11-01] MEDS: FLUCONAZOLE 100 MG TABLET PO (09:01)
[2022-11-01] MEDS: HYDROmorphone HCL INJ (*CRX) 1 MG/ML SYR 0.5 MG IV PUSH (11:49)
[2022-11-01] MEDS: FERROUS SULFATE 324 MG TABLET PO (11:50)
--- NOTE | 2022-11-06 12:47 | PM.DS ---
DS: Admitting Diagnosis Discharge Date 11/01/22 Admitting Diagnosis Iatrogenic right pneumothorax Myelodysplasia syndrome DS: Discharge Diagnosis Discharge Diagnosis (1) Iatrogenic pneumothorax: Code(s): J95.811 - Postprocedural pneumothorax Status: Acute Assessment and Plan: Resolved after placement of right chest tube (2) MDS (myelodysplastic syndrome): Code(s): D46.9 - Myelodysplastic syndrome, unspecified Status: Acute Assessment and Plan: Chronic, she is to start chemotherapy treatments by Oncology soon. (3) Pancytopenia: Code(s): D61.818 - Other pancytopenia Status: Acute Assessment and Plan: Due to her myelodysplastic syndrome. She was given 2units of packed red blood cells due to critical anemia levels. DS: Summary Hospital Course Reason for hospitalization: Iatrogenic right pneumothorax. Hospital Course: Patient is very pleasant 81-year-old female who came to [facility] for an outpatient procedure to place a port catheter for treatment of her myelodysplasia syndrome. Unfortunately after the placement of the port catheter a postprocedure chest x-ray revealed a 10% right iatrogenic pneumothorax. She was given high-flow nasal cannula oxygen and observed in the same-day surgery area for about 3 to 4 hours. She remained totally asymptomatic during that time. A repeat chest x-ray was performed showing interval increase in the right pneumothorax to about 25%. At this point since she had expanding pneumothorax a 15 gambian Quick-Thal right thoracostomy tube was placed at the bedside without difficulty. He was then placed to 20cm of Pleur-evac suction. She was then transferred to the intermediate care unit for further postoperative care and observation. Postprocedure chest x-ray revealed no evidence of residual pneumothorax with good positioning of the tip of the chest tube. The next day she was doing very well and did not have an obvious air leak in the water seal chamber. A placed the chest tube to water seal and obtained a chest x-ray about 4hours later. The showed a reaccumulation of a small 10% right pneumothorax. At this point I then replaced the chest tube to suction left to the suction for another 48hours. During this time the patient tolerated regular diet and was kept on all of her home medications. Lab studies were performed and showed that her platelet count had dropped to a low below 50,000 but she was not having any issues with bleeding and her hemoglobin had dropped to less than 7. At this point I then gave her 2units of packed red blood cells which seem to increase her energy levels. She was also started to have severe back pain which has been chronic in nature for her but was likely exacerbated by her time lying in bed. She was given IV and oral narcotic pain medications and Dr. Mason who is our oncologist evaluated her and felt that even though she was immunocompromised it will be okay to give her some oral steroids to help with her back pain. This was started and she had improvement in her back pain. After 2 days the chest tube was placed to water seal again and this time with a deep cough there is no evidence of air leak. After 24hours on water seal repeat chest x-ray showed no evidence of a residual right pneumothorax and so the right chest tube was removed. Follow-up chest x-ray in about 4hours showed a very small less than 5% right pneumothorax that was totally asymptomatic. Physical therapy and occupational therapy saw her throughout her hospitalization and they felt that long-term facility would be beneficial for her, however, she did not qualify under her insurance criteria. Therefore she was then discharged home with home health physical therapy and occupational therapy. Before leaving I checked her aurelia catheter incision was healing well. There is a small amount of ecchymosis around the area but no redness or drainage.
== END 2022-11-01 13:20 | disposition home health service (06) | DRG 200 ==
LOC: ANHICU 15:00 → ANH3MEDSUR 10-25 18:01
PROVIDERS: Nurse Practitioner Family; Admitting Provider Surgery; PCP Emergency Medicine; Visit Provider Surgery
PROC: 02HV33Z Insertion of Infusion Device into Superior Vena Cava, Percutaneous Approach (ICD-10-PCS; principal; 2022-10-24 10:00)
DX: J95.811 Postprocedural pneumothorax (principal); D61.818 Other pancytopenia; D46.9 Myelodysplastic syndrome, unspecified; M62.830 Muscle spasm of back; E78.5 Hyperlipidemia, unspecified; I12.9 Hypertensive chronic kidney disease with stage 1 through stage 4 chronic kidney disease, or unspecified chronic kidney disease; M19.90 Unspecified osteoarthritis, unspecified site; N18.30 Chronic kidney disease, stage 3 unspecified
CPT/HCPCS: 36415; 36430; 71045; 71046; 77001; 80048; 83880; 84295; 85014; 85018; 85025; 85027; 85055; 85730; 86850; 86900; 86901; 86923; 97110; 97161; 97165; 97530; 97535; A9270; C1729; C1788; J0690; J1170; J1644; J1885; J2270; J2704; J7050; J7120; J7512; P9016

== ENCOUNTER 2022-11-20 07:39 | Outpatient (RCR) | payer MEDICARE, SELFPAY ==
--- NOTE | 2022-11-20 08:29 | PC.NURSE ---
Spoke with Dr. Mason's RN. Given verbal order ok to access port. Discussed low bp readings. Will give 1 unit of plt's and recheck bp. would still like mag
[2022-11-20] MEDS: SODIUM CHLORIDE 0.9% IV 250 ML 30 ML IV CONT (08:38)
[2022-11-20] MEDS: ACETAMINOPHEN 325 MG TABLET 650 MG PO (08:40)
[2022-11-20] MEDS: diphenhydrAMINE HCl CAP 25 MG CAPSULE PO (08:40)
[2022-11-20 09:15] VITALS: BP 110/49; PULSE 97; RESP 18; TEMP 37; O2SAT 99
[2022-11-20 09:30] VITALS: BP 97/43; PULSE 94; RESP 20; TEMP 37.2; O2SAT 98
[2022-11-20 10:15] VITALS: BP 107/52; PULSE 95; RESP 20; TEMP 37.3; O2SAT 98
[2022-11-20] MEDS: FUROSEMIDE INJ 40 MG/4 ML VIAL 20 MG IV PUSH (10:16)
[2022-11-20 10:40] VITALS: BP 95/43; PULSE 97; RESP 20; TEMP 36.9; O2SAT 100
[2022-11-20 10:55] VITALS: BP 97/43; PULSE 94; RESP 20; TEMP 36.8; O2SAT 99
[2022-11-20 11:40] VITALS: BP 101/44; PULSE 94; RESP 20; TEMP 36.8; O2SAT 99
[2022-11-20] MEDS: HEPARIN SODIUM LOCK FLUSH 500 UNITS/5 ML VIAL (11:45)
--- NOTE | 2022-11-20 11:56 | PC.NURSE ---
Pt port deaccessed, dressing applied. Discharge instructions given and discussed with patient and daughter. Questions answered. Pt escorted out by daughter.
== END 2023-02-18 23:59 | disposition home or self-care (01) ==
LOC: ANHCPCTRAN 07:39
PROVIDERS: PCP Emergency Medicine; Visit Provider Internal Medicine Hematology & Oncology
DX: D46.9 Myelodysplastic syndrome, unspecified (principal)
CPT/HCPCS: 36415; 36430; 86900; 86901; A9270; J1642; J1940; J7050; P9034

== ENCOUNTER 2023-08-12 10:52 | Outpatient (CLI) | payer MEDICARE, SELFPAY | END 2023-08-12 10:53 | disposition home or self-care (01) | LOC: ANHAUDASC 10:52 | PROVIDERS: PCP Emergency Medicine; Visit Provider Emergency Medicine | DX: H90.42 Sensorineural hearing loss, unilateral, left ear, with unrestricted hearing on the contralateral side (principal); H90.71 Mixed conductive and sensorineural hearing loss, unilateral, right ear, with unrestricted hearing on the contralateral side | CPT/HCPCS: 92557; 92567 ==